=== PATIENT | male | born 1950 | race Caucasian/White ===

== ENCOUNTER 2019-10-15 11:24 | Emergency (ER) | payer MEDICARE, OTHER, SELFPAY | END 2019-10-15 14:55 | disposition home or self-care (01) | PROVIDERS: Emergency Provider Family Medicine; Family Provider Nurse Practitioner Family; Visit Provider Family Medicine | DX: I25.110 Atherosclerotic heart disease of native coronary artery with unstable angina pectoris (principal); I10 Essential (primary) hypertension; Z98.61 Coronary angioplasty status; I25.2 Old myocardial infarction | CPT/HCPCS: 36415; 71045; 80053; 84484 ×2; 85025; 85610; 93005 ×2; 99284 ==

== ENCOUNTER 2019-10-21 22:20 | Observation (INO) | payer MEDICARE, OTHER, SELFPAY ==
[2019-10-21 22:45] VITALS: BP 128/72; PULSE 59; RESP 16; O2SAT 96
--- NOTE | 2019-10-21 22:46 | XRR_ITS ---
PROCEDURE INFORMATION: Exam: XR Chest, 1 View Exam date and time: 10/21/2019 11:26 PM Age: 69 years old Clinical indication: Chest pain; Prior surgery; Surgery date: 6+ months; Surgery type: Valve replacement, stents x 1; Additional info: Cp TECHNIQUE: Imaging protocol: XR of the chest Views: 1 view. COMPARISON: CR Chest 1 [place] [id number] 10/15/2019 12:55 PM FINDINGS: Lungs: No interval lung disease. Pleural space: Still no pneumothorax or apparent pleural fluid. Heart/Mediastinum: Heart size at the upper limits of normal as before. Continued suggestion of a right cardiophrenic fat pad. Bones/joints: Previous median sternotomy again evident. Continued metallic anchors in the left humeral head. No apparent acute fracture. Continued prominent narrowing of the interspace between the proximal left fourth and fifth ribs. XR/XR chest 1V portable [id number] IMPRESSION: No acute cardiopulmonary disease or significant change in the chest. Chronic findings detailed above.
--- NOTE | 2019-10-21 22:46 | ECG_ITS ---
Measurements Intervals [place] Rate: 59 P: 70 [place]: 161 QRS: -35 QRSD: 104 T: 29 QT: 421 QTc: 419 SINUS BRADYCARDIA LOW QRS VOLTAGE IN PRECORDIAL LEADS INCOMPLETE RIGHT BUNDLE BRANCH BLOCK INFERIOR MYOCARDIAL INFARCTION , OF INDETERMINATE AGE Compared to ECG 10/15/2019 14:11:33 Incomplete right bundle-branch block now present Myocardial infarct finding still present Electronically Signed On 10-22-2019 11:15:02 DIGITAL FORENSICS INVESTIGATOR by America Hayes M.D. [id number]
--- NOTE | 2019-10-21 22:48 | ED_ITS ---
Entered by Cristina Aguirre, acting as scribe for HPI - Chest Pain General: Stated Complaint: cp Time Seen by Provider: 10/21/19 22:46 Source: patient Mode of arrival: ambulatory Limitations: no limitations History of Present Illness: HPI narrative: 69 yo m came to the er pov for chest pain. Onset was today. Pt states that he was setting watching tv and then he started having pain down his left arm. Pt states that he took a nati, pt then went and layed down and the chest pains came back. Pt states that he took another nitro when he got into the car and the pain went away. Pts states that they went to go see his cardio doc in [facility] today and pts said that he has a cath scheduled this . Pts states that the pt has been sob 3 times today. MD complaint: chest pain Onset (ago): day(s) (today) Timing of current episode: episodic and now resolved Prior episodes: Yes Onset: during rest Pain radiation: none Quality: sharp Associated symptoms: Reports dyspnea; Deny abdominal pain, fever(s), nausea, palpitations or vomiting Risk Factors: Coronary artery disease risk factors: none Review of Systems Const: Denies: fever Eyes: Denies: change in vision or blurry vision ENMT: Denies: painful swallowing, swelling of lips/tongue, bleeding gums, dental pain, Change in hearing, nose bleeds, post nasal drip or facial/sinus pain Card: Denies: palpitations Resp: Reports: shortness of breath GI: Denies: abdominal pain, nausea or vomiting : Denies: difficulty urinating, painful urination, urinary frequency, urinary urgency or blood in urine Musc: Denies: neck pain, back pain, redness or joint warmth Skin/Breast: Denies: rash, itching or redness Neuro: Denies: headache, dizziness, vertigo, confusion or seizure-like activity Psych: Denies: anxiety, visual hallucinations or auditory hallucinations Physical Exam Const: COMMON NORMALS: alert GENERAL APPEARANCE: well developed ORIENTATION/CONSCIOUSNESS: Yes awake, Yes oriented to person, Yes oriented to place and Yes oriented to time HENMT: COMMON NORMALS: normocephalic, external ears normal, external nose normal and moist oral mucous membranes HEAD & SCALP: normocephalic; no scalp tenderness FACE & SINUS: normal facial exam NOSE: external nose normal and no nasal discharge EXTERNAL EAR: Yes external ears normal MOUTH: tongue normal THROAT: posterior oropharynx normal; no peritonsillar mass Eye: COMMON NORMALS: PERRL, EOMs intact bilaterally and conjunctivae normal EYELID: eyelids normal CONJUNCTIVA: Yes conjunctivae normal PUPIL: Yes PERRL Neck/C-Spine: COMMON NORMALS: full ROM GENERAL: Yes anterior neck swelling and No tracheal deviation CERVICAL SPINE: Yes normal cervical lordosis, No cervical spine tenderness, No step off deformity, No paracervical muscle tenderness and No paracervical muscle spasm Chest: COMMONS NORMALS: inspection of chest normal CHEST: Yes symmetrical chest wall rise and No tenderness Resp: COMMON NORMALS: clear to auscultation bilaterally EFFORT & INSPECTION: No tachypneic, No respiratory distress, No retractions, No uses accessory muscles and No tracheal deviation AUSCULTATION: clear to auscultation bilaterally, no rhonchi, no wheezes and lung sounds not diminished Cardio: COMMON NORMALS: regular rate and regular rhythm RATE: regular rate RHYTHM: regular rhythm HEART SOUNDS: no murmurs PERIPHERAL PULSES: radial pulses present GI: INSPECTION: No abdominal distension AUSCULTATION: No hyperactive bowel sounds and No hypoactive bowel sounds PALPATION: No tender, No guarding and No rigid PERCUSSION: no dullness to percussion and no tympanic to percussion : COMMON NORMALS: Yes no CVA tenderness BLADDER/KIDNEY EXAM: Yes no CVA tenderness Back/Pelvis: COMMON NORMALS: no CVA tenderness PELVIS: Yes no pain with anterior-posterior compression and Yes no pain with lateral compression Neuro: SENSORIUM/ORIENTATION: Yes alert, Yes oriented to person, Yes oriented to place and Yes oriented to time Psych: COMMON NORMALS: mental status grossly normal and speech normal SPEECH: Yes normal speech Skin: COMMON NORMALS: no rashes or lesions noted GENERAL SKIN EXAM: no rashes or lesions noted Course Consultations: Consultation #1: danna Vital Signs: Vital signs: Vital Signs Pulse Rate 69 10/22/19 03:32 Respiratory Rate 17 10/22/19 03:32 Blood Pressure 164/86 10/22/19 03:32 Pulse Oximetry 95 10/22/19 03:32 MDM - Chest Pain MDM Narrative: Medical decision making narrative: 69-year-old male with a history of coronary disease and valvular disease. He has 2 stents in his heart. 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 He been having chest pain in a crescendo manner for the last couple of weeks. He had seen his ticket collector, and was scheduled for a catheterization this coming . His EKGs show sinus rhythm without ST changes. His troponins did not change at 2 hours. He walked in the ER, with return of chest discomfort and some shortness of breath. He will be observed for chest pain. Hospitalist is aware. Lab Data: Labs: Lab Results 10/21/19 10/21/19 10/21/19 Range/Units 22:50 22:58 22:58 WBC 5.3 (4.0-10.0) 10^3/ uL RBC 4.34 (4.1-5.3) 10^6/u L Hgb 13.1 (11.7-16.6) g/dL Hct 38.3 L (42.0-52.0) % MCV 88.2 (80-94) fL MCH 30.2 (28.0-34.0) pg MCHC 34.2 (30.0-36.0) g/dL RDW 12.0 L (12.1-15.1) % Plt Count 205 (130-400) 10^3/c mm MPV 10.8 H (7.4-10.4) fL Neut % (Auto) 48.7 % Lymph % (Auto) 39.9 % Payne % (Auto) 7.2 % Eos % (Auto) 3.6 % Baso % (Auto) 0.6 % Neut # (Auto) 2.6 (1.8-7.7) 10^3/u L Lymph # (Auto) 2.1 (0.8-4.8) 10^3/u L Payne # (Auto) 0.4 (0.2-0.9) 10^3/u L Eos # (Auto) 0.2 (0.0-0.8) 10^3/u L Baso # (Auto) 0.0 (0.0-0.1) 10^3/u L Nucleated RBC % (a uto) 0 % Nucleated RBCs # 0.0 /100WBC Sodium 142 (136-145) mmol/L Potassium 4.1 (3.5-5.1) mmol/L Chloride 107 (98-107) mmol/L Carbon Dioxide 22 (22-29) mmol/L Anion Gap 17.1 (5-19) BUN 13 (8-23) mg/dL Creatinine 0.8 (0.7-1.2) mg/dL GFR Calculation 96.1 (90-130) mL/min Glucose 99 (74-106) mg/dL Calcium 9.7 (8.8-10.2) mg/Dl Total Bilirubin 0.2 (0.15-1.2) mg/dL AST 22 (0-40) U/L ALT 18 (0-41) U/L Alkaline Phosphata se 46 (40-130) IU/L Creatine Kinase 73 (39-308) U/L Troponin T Baselin e (0-15) ng/mL Troponin T 120 Min roberth (0-15) ng/mL Delta Troponin T (0-10) ABS# NT-Pro-B Natriuret Pep 176 H (0-125) pg/mL Total Protein 6.5 L (6.6-8.7) g/dL Albumin 4.4 (3.5-5.2) g/dL Globulin 2.1 (1.3-4.6) g/dL Urine Color Straw (Yellow) Urine Appearance Clear (CLEAR) Urine pH 7 (5-7) Ur Specific Gravit y 1.001 L (1.005-1.030) Urine Protein Neg (Negative) Urine Glucose (UA) Norm (Normal) Urine Ketones Negative (Negative) Urine Occult Blood Neg (Negative) Urine Nitrate Negative (Negative) Urine Bilirubin Neg (NEGATIVE) Urine Urobilinogen Norm (Negative) mg/dL Ur Leukocyte Nicolasa ase Negative (Negative) Urine RBC None (0-2) /hpf Urine WBC None (0-5) /hpf Ur Squamous Epith Cells None (0-5) Urine Bacteria None (NONE) 10/21/19 10/22/19 Range/Units 22:58 00:56 WBC (4.0-10.0) 10^3/ uL RBC (4.1-5.3) 10^6/u L Hgb (11.7-16.6) g/dL Hct (42.0-52.0) % MCV (80-94) fL MCH (28.0-34.0) pg MCHC (30.0-36.0) g/dL RDW (12.1-15.1) % Plt Count (130-400) 10^3/c mm MPV (7.4-10.4) fL Neut % (Auto) % Lymph % (Auto) % Payne % (Auto) % Eos % (Auto) % Baso % (Auto) % Neut # (Auto) (1.8-7.7) 10^3/u L Lymph # (Auto) (0.8-4.8) 10^3/u L Payne # (Auto) (0.2-0.9) 10^3/u L Eos # (Auto) (0.0-0.8) 10^3/u L Baso # (Auto) (0.0-0.1) 10^3/u L Nucleated RBC % (a uto) % Nucleated RBCs # /100WBC Sodium (136-145) mmol/L Potassium (3.5-5.1) mmol/L Chloride (98-107) mmol/L Carbon Dioxide (22-29) mmol/L Anion Gap (5-19) BUN (8-23) mg/dL Creatinine (0.7-1.2) mg/dL GFR Calculation (90-130) mL/min Glucose (74-106) mg/dL Calcium (8.8-10.2) mg/Dl Total Bilirubin (0.15-1.2) mg/dL AST (0-40) U/L ALT (0-41) U/L Alkaline Phosphata se (40-130) IU/L Creatine Kinase (39-308) U/L Troponin T Baselin e 17 H (0-15) ng/mL Troponin T 120 Min roberth 16.57 H (0-15) ng/mL Delta Troponin T -0.43 L (0-10) ABS# NT-Pro-B Natriuret Pep (0-125) pg/mL Total Protein (6.6-8.7) g/dL Albumin (3.5-5.2) g/dL Globulin (1.3-4.6) g/dL Urine Color (Yellow) Urine Appearance (CLEAR) Urine pH (5-7) Ur Specific Gravit y (1.005-1.030) Urine Protein (Negative) Urine Glucose (UA) (Normal) Urine Ketones (Negative) Urine Occult Blood (Negative) Urine Nitrate (Negative) Urine Bilirubin (NEGATIVE) Urine Urobilinogen (Negative) mg/dL Ur Leukocyte Nicolasa ase (Negative) Urine RBC (0-2) /hpf Urine WBC (0-5) /hpf Ur Squamous Epith Cells (0-5) Urine Bacteria (NONE) Discharge Plan Discharge Patient Disposition: Placed in Observation Admit Provider: Braxton Butler Clinical Impression: Chest pain Condition: Stable Referrals: Marci Russo FNP [Family Provider] - Interventions: ED Discharge Assessment Last Done: 10/22/19 03:32 Discharge Date/Time: 10/22/19 03:57 Coding Level of Care Code ED Jail Guard for Chg Fwd The documentation recorded by the Timothy wynne Stephanie Lyn, accurately reflects the service I personally performed and the decisions made by Wisam dunn Jeremy John, DO Oct 21, 2019 22:20
[2019-10-21 23:00] VITALS: BP 154/91; PULSE 71; O2SAT 94
[2019-10-21 23:09] VITALS: BP 154/91; PULSE 65; RESP 16; O2SAT 95
[2019-10-21 23:10] LABS: Basophils % 0.6 %; Eosinophils # 0.2 10^3/uL (0.0-0.8); Eosinophils % 3.6 %; Hematocrit 38.3 % (42.0-52.0); Hemoglobin 13.1 g/dL (11.7-16.6); Lymphocytes # 2.1 10^3/uL (0.8-4.8); Lymphocytes % 39.9 %; Mean Corpuscular HGB Conc 34.2 g/dL (30.0-36.0); Mean Corpuscular Hemoglobin 30.2 pg (28.0-34.0); Mean Corpuscular Volume 88.2 fL (80-94); Mean Platelet Volume 10.8 fL (7.4-10.4); Monocytes # 0.4 10^3/uL (0.2-0.9); Monocytes % 7.2 %; Neutrophils # 2.6 10^3/uL (1.8-7.7); Neutrophils % 48.7 %; Nucleated Red Blood Cells % 0 %; Platelet Count 205 10^3/cmm (130-400); Red Blood Count 4.34 10^6/uL (4.1-5.3); White Blood Count 5.3 10^3/uL (4.0-10.0)
[2019-10-21 23:14] LABS: Bilirubin Urine Neg (NEGATIVE); Blood Urine Neg (Negative); Glucose Urine UA Norm (Normal); Ketones Urine Negative (Negative); Leukocyte Esterase Urine Negative (Negative); Nitrate Urine Negative (Negative); Protein Urine Neg (Negative); Specific Gravity, Urine 1.001 (1.005-1.030); Urine Appearance Clear (CLEAR); Urine Color Straw (Yellow); Urobilinogen Urine Norm (Negative); pH Urine 7 (5-7)
[2019-10-21 23:30] VITALS: BP 126/76; PULSE 61; O2SAT 94
[2019-10-21 23:32] LABS: Troponin(5th) Baseline 17 ng/mL (0-15)
[2019-10-21 23:42] LABS: Alanine Aminotransferase 18 U/L (0-41); Albumin Level 4.4 g/dL (3.5-5.2); Alkaline Phosphatase 46 IU/L (40-130); Anion Gap 17.1 (5-19); Aspartate Amino Transferase 22 U/L (0-40); Blood Urea Nitrogen 13 mg/dL (8-23); Calcium 9.7 mg/Dl (8.8-10.2); Carbon Dioxide 22 mmol/L (22-29); Chloride 107 mmol/L (98-107); Creatine Phosphokinase 73 U/L (39-308); Globulin 2.1 g/dL (1.3-4.6); Glomerular Filtration Rate 96.1 mL/min (90-130); Glucose 99 mg/dL (74-106); NT Pro B Type Natriuretic Pept 176 pg/mL (0-125); Potassium 4.1 mmol/L (3.5-5.1); Sodium 142 mmol/L (136-145); Total Bilirubin 0.2 mg/dL (0.15-1.2); Total Protein 6.5 g/dL (6.6-8.7)
[2019-10-22] VITALS (27 sets, daily range): BP systolic 96–164; BP diastolic 53–90; PULSE 55–76; RESP 7–23; TEMP 36.3–36.9; O2SAT 92–98
--- NOTE | 2019-10-22 00:46 | ECG_ITS ---
Measurements Intervals [place] Rate: 61 P: 75 [place]: 160 QRS: -43 QRSD: 97 T: 34 QT: 401 QTc: 407 SINUS RHYTHM POSSIBLE RIGHT VENTRICULAR CONDUCTION DELAY [RSR (QR) IN V1/V2] POSSIBLE ANTERIOR MYOCARDIAL INFARCTION, OF INDETERMINATE AGE INFERIOR MYOCARDIAL INFARCTION , OF INDETERMINATE AGE Compared to ECG 10/15/2019 14:11:33 Sinus bradycardia no longer present Myocardial infarct finding still present Electronically Signed On 10-22-2019 11:23:57 RESPITE WORKER by America Hayes M.D. [email or web address]
[2019-10-22 01:18] LABS: Troponin 5 2HR 16.57 ng/mL (0-15)
[2019-10-22 01:21] LABS: Troponin 5 2HR Delta -0.43 ABS# (0-10)
--- NOTE | 2019-10-22 04:46 | ECG_ITS ---
Measurements Intervals [place] Rate: 58 P: 74 [place]: 164 QRS: -32 QRSD: 103 T: 28 QT: 419 QTc: 415 SINUS BRADYCARDIA INCOMPLETE RIGHT BUNDLE BRANCH BLOCK INFERIOR MYOCARDIAL INFARCTION, OF INDETERMINATE AGE Compared to ECG 10/15/2019 14:11:33 Incomplete right bundle-branch block now present Myocardial infarct finding still present Electronically Signed On 10-22-2019 11:21:06 POLISHER DIAL by America Hayes M.D. [id number]
--- NOTE | 2019-10-22 05:36 | PM.HP ---
Providers/Chief Complaint Admitting Physician: Braxton Butler MD Chief Complaint: cp History of Present Illness Ian Monroe is a 69 year old male who carries diagnosis of coronary disease stent in LAD, mitral valve repair for mitral valve regurgitation, BPH, hypertension, dyslipidemia, came in after experiencing chest pain. Patient is stating that he goes to his monitoring manager in [place] and he had planned coronary angiogram this but unfortunately he started having chest pain at rest last night while he was sitting in couch it lasted for 1 minute and then he took nitro sublingual and after 5 minutes he went to bed and while he was in bed he started having second episode he took another sublingual nitro and decided to come to ER for further evaluation. He experienced mild facial flushing, hot flashes, shortness of breath, he felt nauseous. In emergency department he had normal hemodynamics, but on ambulation he started having another chest pain and third dose of nitro was given. He was preferring to get angiogram in [place] but because of this active chest pain/unstable angina he decided to get a cardiac evaluation in the morning. By the time I saw her he had normal hemodynamics, he was chest pain-free, sitting without active discomfort, EKG showed normal sinus rhythm with bradycardia without any ischemic changes, troponin delta nonsignificant, normal blood work He is allergic to statins, he is thinking of getting PCSK9 inhibitor prescription, His recent stress test was negative in July 2019 Review of Systems Narrative: Patient was then comfortable in his bed without any active discomfort he is denying fever, chills, shortness of breath He had chest pain few minutes back when he was ambulating not at the moment Abdomen soft nontender nondistended He is denying diarrhea constipation He is denying hot flashes, skin ulcers, bruises He is denying chest pain at the moment No shortness of breath at the moment but experience shortness of breath and chest pain on ambulation No burning on micturition No anxiety or depression No cough, runny nose, runny eyes Medications/Allergies Home Medications Medication Instructions Recorded Confirmed Last Taken Type ascorbic acid (vitamin C) [Vitamin 500 mg PO DAILY 10/22/19 10/22/19 10/21/19 08:00 History C] aspirin 81 mg PO DAILY 10/22/19 10/22/19 10/21/19 08:00 History azelastine 2 spray INTRANASAL BID 10/22/19 10/22/19 10/21/19 08:00 History cholecalciferol (vitamin D3) 1,000 unit PO DAILY 10/22/19 10/22/19 10/21/19 08:00 History [Vitamin D3] dutasteride 0.5 mg PO DAILY 10/22/19 10/22/19 10/21/19 08:00 History ezetimibe [Zetia] 5 mg PO DAILY 10/22/19 10/22/19 10/21/19 08:00 History isosorbide mononitrate 30 mg PO DAILY 10/22/19 10/22/19 10/21/19 08:00 History lisinopril 10 mg PO DAILY 10/22/19 10/22/19 10/21/19 08:00 History metoprolol succinate 50 mg PO DAILY 10/22/19 10/22/19 10/21/19 08:00 History tamsulosin [Flomax] 0.4 mg PO BID 10/22/19 10/22/19 10/21/19 08:00 History zinc 50 mg PO DAILY 10/22/19 10/22/19 10/21/19 08:00 History Allergies Allergy/AdvReac Type Severity Reaction Status Date / Time niacin Allergy Severe ADR/ALGY-Fl Verified 10/22/19 04:12 ushing [id number]-[id number]-Uwg Reductase Allergy Intermediate ADR-Cramping Verified 10/22/19 04:11 Inhibitor of the Muscles PFSH Acute PFSH: Statuses (acute, chronic, etc) shown below reflect problem list status as previously entered and may not be historically accurate Medical History (Updated 10/22/19 @ 05:46 by Braxton Butler MD) Abnormal colonoscopy (Acute) BPH (benign prostatic hyperplasia) (Acute) Colon polyp (Acute) Dyslipidemia (Acute) Erectile dysfunction (Acute) Hypertension (Acute) Left lateral epicondylitis (Acute) Mitral valve regurgitation (Acute) Non-smoker (Acute) Shoulder pain with history of repair of rotator cuff (Acute) Surgical History (Updated 10/22/19 @ 05:45 by Braxton Butler MD) H/O circumcision (Acute) History of unicondylar arthroplasty of right knee (Acute) S/P mitral valve repair (Acute) Family History (Updated 10/22/19 @ 04:19 by Alba Guidry RN) Mother Hypertension CAD (coronary artery disease) Cancer Dementia Father Cancer Social History (Updated 10/22/19 @ 04:16 by Alba Guidry RN) Smoking and tobacco status: never smoked Vitals/I&O/Wt Last Vital Signs Temp 98.1 F 10/22/19 04:50 Pulse 69 10/22/19 03:32 Resp 18 10/22/19 04:50 BP 141/83 10/22/19 04:50 Pulse Ox 95 10/22/19 03:32 Weight last 48 hrs Weight 80.331 kg Physical Exam Narrative: EXAM NARRATIVE: Appears stated age, facial flushing, Looks hydrated without any distress S1-S2 without any murmur, no signs of heart failure no JVD no lower semi-edema Abdomen soft nontender nondistended Neurological nonfocal exam Skin shows no signs of ischemia Also Mentation with appropriate mood and affect no anxiety or depression signs No lower sitting edema Lungs are clear to auscultation without adventitious sounds No joint abnormality A&P Assessment and plan (1) Unstable angina: Status: Acute Code(s): I20.0 - Unstable angina (2) CAD (coronary artery disease): Status: Acute Code(s): I25.10 - Atherosclerotic heart disease of [place] coronary artery without angina pectoris Additional A&P Information Additional A&P Information: Unstable angina Patient has established coronary disease with stent in LAD, strong family history EKG showing no signs of coronary ischemia, currently chest pain-free, normal hemodynamics, delta troponin nonsignificant, He was scheduled for an angiogram on this week Because of unstable angina on mild exertion and at rest he decided to get cardiac evaluation in the morning at [facility] but he prefers to be evaluated by his monitoring manager if he stays stable We will keep him n.p.o. for now in case he will go for an angiogram here For his antianginal effect I would increase the dose of metoprolol and Imdur for now Continue lisinopril He is not on any statins he is statin intolerant, will get PCSK9 inhibitor prescription in the near future BPH: Continue tamsulosin Hypertension: Continue lisinopril Dyslipidemia: He is on Zetia Full code Attestations Medical Necessity Statement*: We will admit him as observation for now he is waiting for cardiac evaluation here, anticipating his discharge in less than 48 hours currently chest pain-free Time Spent in Patient Care: Greater than 35 minutes 45 Coding Level of Care Code Acute Beef Cattle Farm Worker for Aleksandrg Fwd Diagnoses Unstable angina I20.0 CAD (coronary artery disease) I25.10
[2019-10-22 06:05] LABS: Troponin 5 6HR 18.13 ng/L (0-15)
--- NOTE | 2019-10-22 08:09 | PM.PN ---
Subjective Subjective: Interval history: Overnight labs and H&P reviewed. Awaiting cardiology evaluation. Patient denies any current complaints of chest pain dyspnea palpitations. He feels asymptomatic right now. Medications: Reviewed: Yes Vitals/I&O/Wt Last Vital Signs Temp 97.9 F 10/22/19 07:24 Pulse 64 10/22/19 07:24 Resp 16 10/22/19 07:24 BP 139/83 10/22/19 07:24 Pulse Ox 95 10/22/19 07:24 Weight last 48 hrs Weight 80.331 kg Physical Exam Narrative: EXAM NARRATIVE: General: awake alert and oriented CVS S1-S2 is normal no murmurs rubs or gallops RS clear to auscultation bilaterally, no added sounds Abdomen soft nondistended nontender Extremities no swelling edema or cyanosis A&P Assessment and plan (1) Unstable angina: Status: Acute Code(s): I20.0 - Unstable angina (2) CAD (coronary artery disease): Status: Acute Code(s): I25.10 - Atherosclerotic heart disease of [place] coronary artery without angina pectoris Additional A&P Information Additional A&P Information: Unstable angina Patient has established coronary disease with stent in LAD, strong family history EKG showing no signs of coronary ischemia, currently chest pain-free, normal hemodynamics, delta troponin nonsignificant. Awaiting cardiology evaluation for possible angiogram Continue metoprolol and Imdur for now Continue lisinopril He is not on any statins he is statin intolerant, will get PCSK9 inhibitor prescription in the near future Hypertension: Continue lisinopril Dyslipidemia: He is on Zetia Full code Attestations Medical Necessity Statement*: Admitted for the management of unstable angina with a significant past history of CAD awaiting cardiology evaluation Coding Level of Care Code Acute Veneer Joiner for [facility] Fwd Diagnoses Unstable angina I20.0 CAD (coronary artery disease) I25.10
--- NOTE | 2019-10-22 09:20 | XACV_ITS ---
Exam Room: [facility] Ht: 168 cm Wt: 76 kg BSA: 1.90 m2 Gender: Male : 1950 Any Known Allergies: Other Exam Priority: Routine Procedure(s): Procedure Description: Diagnostic procedure Procedure Description: PCI procedure Procedure Description: Left Heart Catheterization Procedure Description: Left ventriculography Procedure Description: Drug Eluting Coronary Stent Procedure Description: Coronary Angiography Diagnostic Cath Status: Urgent Diagnostic Findings Patient with prior history of LAD stent and mitral valve repair with typical angina. Stress testing 3 months ago negative reportedly. Was scheduled for angiography this coming 4 days from now in [place]. Entered the hospital with unstable chest discomfort now occurring at rest. Troponins negative. EKG is unremarkable. Angiography reveals right coronary artery dominance. Left main coronary artery is normal. The circumflex is normal. The mitral valve ring is in the appropriate position. Previously placed LAD stent in the proximal portion is widely patent. Distal to the left main and proximal to the existing stent there is a 99% discrete stenosis of the LAD. The remainder of the LAD is normal. The right coronary artery is the dominant vessel. It is moderately calcified. There is a 60% stenosis in the midportion followed by an eccentric 20 to 30% stenosis. PCI Status: Urgent PCI LVEF Assessed: Yes PCI Indication: NSTE - ACS Interventional Findings The proximal LAD was stented primarily with a 2.75 x 8 mm stent with a good result. Decision for PCI with Surgical Consult: No PCI for Multi-vessel Disease: No Conclusions Previously placed LAD stent patent. New lesion in the very proximal LAD 99%. Primarily stented without incident. Remainder of the vessels show nonobstructive disease. Normal left ventricular function. Recommendations Medical therapy. Interventional RX Recommendation: PCI w/o planned CABG Diagnostic RX Recommendation: PCI w/o planned CABG Anticoagulation: Heparin Ventriculography Ejection Fraction: 55.0 % Pressures Phase:Rest AO : 94 mmHg / 46 mmHg ( 63 mmHg ) @ 4:58:00 AM 94 mmHg / 53 mmHg ( 71 mmHg ) @ 5:08:00 AM 99 mmHg / 47 mmHg ( 71 mmHg ) @ 5:08:00 AM LV : 119 mmHg / -4 mmHg / @ 5:07:00 AM 111 mmHg / -4 mmHg / @ 5:08:00 AM 111 mmHg / -4 mmHg / @ 5:08:00 AM Valves Phase:DefaultPhase AV : 15.0 mmHg @ 11:30:00 AM AV Mean Gradient: 34.0 mmHg @ 11:30:00 AM Clinical Evaluation EBL: 5mL-10mL Procedural Details Cardiovascular Instability: No. Medication's Wasted: Heparin = 1000 units. Procedure Consent Obtained. Pre-Procedure Time Out. Identified patient by full name and date of as verbalized by the patient/guarantor. Does the consent match the physician's order: Yes. Accurate & Complete Informed Consent: Yes. Inpatient/Outpatient History & Physical on Chart: Yes. If H&P is completed, is and addenduem needed: No; If yes, is the addendum complete: N/A. Visualize and Verify Site with Patient/Guarantor: N/A. Relevant Radiology Images available: N/A. Pre-op teaching completed and patient verbalized understanding. The risks, benefits, and alternatives of sedation and/or procedure were discussed by physician. The patient agrees to continue. Procedure started. [facility] Clinical Fraility Score: 3: Managing Well. 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 Chest Pain Symptom Assessment: Typical Angina Symptoms. Correct patient, site and procedure confirmed by cath team. PERRLA. Strong, equal hand global process owner bilaterally. Lungs clear x 5 lobes. IV Site on Arrival: 18 gauge in the left anticubital. Pre Procedural Pulses: bilateral dorsalis pedis was 3+. Pre Procedural Pulses: bilateral posterior tibial was 3+. Pre Procedural Pulses: bilateral radial was 3+. Oxygen started at 2liters/min via nasal canula. bilateral groins was prepped with chloroprep then draped in the usual sterile fashion. right radial was prepped with chloroprep then draped in the usual sterile fashion. Physician notified. Physician arrived. Equipment: 6F - Radial. Cardiac Cath Pack. ACIST Manifold Kit Model BT 2000. Heparinized Saline (2 units/mL), 1000 mL bag. Baseline sample Acquired. HR: 63 BPM. IV Fluids: 0.9% NaCl at KVO. 100 mL infused prior to director of labor relations. Physician scrubbed in. Immediate Pre-Procedure Time Out. Correct Patient: Yes; Correct Procedure: Yes; Correct Site: Yes; Correct Patient Position: Yes; Correct Supplies: Yes; Dried Flammable Prep: Yes; Blood Products Available: N/A;. Lidocaine 1% infiltrated to the right radial. Arterial access obtained. A 6 northern ir[place] TIG catheter in over wire. Multiple views taken of left coronary artery. Catheter redirected to the RCA. Multiple views taken of right coronary artery. Catheter removed over the exchange wire. A 5 [place] Angled Pig catheter in over wire. EDP Sample taken: LV 119/-5,19; HR: 71 BPM; SpO2: 95%. LV gram performed in NICHOLAS @ 10 mL/second for a total of 30 mL. EDP Sample taken: LV 111/-5,18; HR: 69 BPM; SpO2: 96%. Pullback taken: LV 111/-5,18; AO 94/53(71); Mean: 34mmHg, Peak to Peak: 15mmHg, SEP: 14sec/min; HR: 69 BPM; SpO2: 95%. Catheter removed over the exchange wire. Patient's family updated. Inventory is CRD 6FR XB 3 GUIDE. 6 [place] XB 3 guide catheter was inserted over the wire. [place] guidewire was advanced through the guide catheter to lesion in the prox LAD. Inflation Number : 1 Flex Tellez EARLINE 2.75X8 ROLANDO -Lot Number# [id number] (exp date 03/02/2021) was prepped and advanced across the Prox LAD. The stent was deployed at 14 JW for 0:48 seconds. Stent balloon and wire out. Results checked. Guide catheter out. Physician scrubbed out. A TR Band was successful obtaining hemostatsis at the Right Radial artery insertion site. TR band placed. Hemostasis obtained. Post Procedure: Pulses reassessed and unchanged. PERRLA. Strong, equal hand global process owner bilaterally. No VTE prophylaxis required. Medication's Wasted: Lidocaine 1% = 18 mL. Medication's Wasted: Nitro = 49.8 mg. Total IV fluids: 100 mL. PCI Indication: NSTE. Complications: none. Estimated blood loss: 5mL-10mL. Procedure completed. Patient transferred by wheelchair to 1st floor. Vital chart was stopped. Site: Right Radial artery Sheath Size: 6 Fr Hemostasis Method: TR Band Hemostasis Success: Successful Procedure Medications Start: 10:38 AM Stop: 10:38 AM Medication: Versed Amount: 1 mg Route: I.V. Start: 10:38 AM Stop: 10:38 AM Medication: Fentanyl Amount: 50 mcg Route: I.V. Start: 10:40 AM Stop: 10:40 AM Medication: Versed Amount: 1 mg Route: I.V. Start: 10:40 AM Stop: 10:40 AM Medication: Fentanyl Amount: 50 mcg Route: I.V. Start: 10:55 AM Stop: 10:55 AM Medication: Verapamil Amount: 5 mg Route: I.A. Start: 10:55 AM Stop: 10:55 AM Medication: Nitrogylcerin Amount: 200 mcg Route: I.A. Start: 10:57 AM Stop: 10:57 AM Medication: Heparin Amount: 5000 units Route: I.V. Start: 10:59 AM Stop: 10:59 AM Medication: Versed Amount: 1 mg Route: I.V. Start: 10:59 AM Stop: 10:59 AM Medication: Fentanyl Amount: 50 mcg Route: I.V. Start: 11:25 AM Stop: 11:25 AM Medication: Plavix Amount: 600 mg Route: P.O. I, the attending physician, have reviewed and verified all procedure medications. Yes, all medications given per verbal order History/Risk Factors Hypertension: Yes Dyslipidemia: Yes Peripheral Arterial Disease (PAD): No Myocardial Infarction (OR): No Obesity: No Renal Disease: No Tobacco Use: Never Prior Interventions PCI: Yes CABG: No Valve Surgery: No Date of PCI: 03/12/2005 Report Signatures Finalized by:Dr. Lazarus Barry MD on 10/22/2019 12:59:28 PM
--- NOTE | 2019-10-22 09:23 | P.CONIM_ITS ---
Providers/Reason For Consult Consulting Physican/Specialty*: Dr. Hayes, cardiology Reason for Consult*: Chest pain Attending Physician: Braxton Butler MD History of Present Illness History of Present Illness Ian Monroe is a 69 year old male with past medical history of coronary artery disease with LAD stent placed in [place] in 2005 after [place], mitral valve repair in 2010 for severe mitral regurgitation at [facility] (no significant stenosis on coronary angiogram presurgery as per patient), hypertension, dyslipidemia and, chronic back pain and benign prostatic hypertrophy presented to the hospital with complaints of chest discomfort. 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 He was admitted in July 2019 and underwent a stress testing that was negative for ischemia as per patient. I do not have the records. About 2 weeks back patient had chest discomfort described as tightness 6/10 in intensity while walking his dog and there is a ER visit on 15 October with similar complaints. Patient has been having intermittent episodes of chest discomfort on and off over the past 2 weeks. In last 2 days he describes shortness of breath twice as well as chest discomfort 6/10 in intensity retrosternal in location while he was sitting on couch that lasted for about 20 minutes. He was started on Imdur 30 mg 3 days back by his log deck tender and is scheduled for a coronary angiogram next . Initially he wanted to go home home and follow-up up with his log deck tender for angiogram but while in the ER he walked and developed nausea mild shortness of breath chest discomfort and hand pain on ambulation and decision was made to get him admitted for further evaluation. I have been asked to assist in further management. He is currently chest pain-free. Review of Systems Const: Denies: fever, chills, change in appetite, change in weight, fatigue or malaise ENMT: Denies: throat pain, swelling of lips/tongue, oral sores/lesions, bleeding gums, nasal congestion, nose bleeds or post nasal drip Card: Denies: palpitations, irregular heart rhythm, edema, lightheadedness, syncope, shortness of breath when lying down or leg pain with exertion Resp: Denies: productive cough, wheezing or coughing up blood GI: Denies: abdominal pain, vomiting, vomiting blood, heartburn/indigestion, diarrhea, constipation, blood in stool or black tarry stool : Denies: decreased urine ouput or blood in urine Musc: Denies: extremity swelling or muscle weakness Skin/Breast: Denies: rash, redness, new lesion or change in hair Neuro: Denies: numbness in extremities, weakness in extremities, lack of coordination, difficulty walking, dizziness, vertigo or confusion Psych: Denies: anxiety or depression Endo: Denies: tired all the time, cold intolerance or heat intolerance Marco A/Lymph: Denies: petechiae or purpura All/Imm: Denies: throat swelling, tongue swelling or acute wheezing Meds/Allergies Home Medications and Allergies Home Medications Medication Instructions Recorded Confirmed Type ascorbic acid (vitamin C) [Vitamin 500 mg PO DAILY 10/22/19 10/22/19 History C] aspirin 81 mg PO DAILY 10/22/19 10/22/19 History azelastine 2 spray INTRANASAL BID 10/22/19 10/22/19 History cholecalciferol (vitamin D3) 1,000 unit PO DAILY 10/22/19 10/22/19 History [Vitamin D3] dutasteride 0.5 mg PO DAILY 10/22/19 10/22/19 History ezetimibe [Zetia] 5 mg PO DAILY 10/22/19 10/22/19 History isosorbide mononitrate 30 mg PO DAILY 10/22/19 10/22/19 History lisinopril 10 mg PO DAILY 10/22/19 10/22/19 History metoprolol succinate 50 mg PO DAILY 10/22/19 10/22/19 History tamsulosin [Flomax] 0.4 mg PO BID 10/22/19 10/22/19 History zinc 50 mg PO DAILY 10/22/19 10/22/19 History Allergies Allergy/AdvReac Type Severity Reaction Status Date / Time niacin Allergy Severe ADR/ALGY-Fl Verified 10/22/19 04:12 ushing [id number] Reductase Allergy Intermediate ADR-Cramping Verified 10/22/19 04:11 Inhibitor of the Muscles PFSH Acute PFSH: Statuses (acute, chronic, etc) shown below reflect problem list status as previously entered and may not be historically accurate Medical History (Updated 10/22/19 @ 09:42 by America Hayes MD) Abnormal colonoscopy (Acute) BPH (benign prostatic hyperplasia) (Acute) Colon polyp (Acute) Dyslipidemia (Acute) Erectile dysfunction (Acute) Hypertension (Acute) Left lateral epicondylitis (Acute) Mitral valve regurgitation (Acute) Non-smoker (Acute) Shoulder pain with history of repair of rotator cuff (Acute) Surgical History (Updated 10/22/19 @ 09:42 by America Hayes MD) H/O circumcision (Acute) History of coronary artery stent placement (Acute) History of mitral valve repair (Acute) History of unicondylar arthroplasty of right knee (Acute) S/P mitral valve repair (Acute) Family History Mother Hypertension CAD (coronary artery disease) Cancer Dementia Father Cancer Social History Smoking and tobacco status: never smoked Vitals/I&O/Wt Last Vital Signs Temp 97.9 F 10/22/19 07:24 Pulse 64 10/22/19 07:24 Resp 16 10/22/19 07:24 BP 139/83 10/22/19 07:24 Pulse Ox 95 10/22/19 07:24 Weight last 48 hrs Weight 177 lb 1.6 oz Physical Exam Const: COMMON NORMALS: no apparent distress, average body habitus, oriented x3, alert and well nourished GENERAL APPEARANCE: cooperative, comfortable, well kempt and well developed ORIENTATION/CONSCIOUSNESS: Yes oriented to person, Yes oriented to place and Yes oriented to time HENMT: COMMON NORMALS: normocephalic, head/scalp atraumatic, hearing grossly normal bilaterally, external ears normal, external nose normal, moist oral mucous membranes and oropharynx normal HEAD & SCALP: normocephalic and atraumatic FACE & SINUS: face symmetric NOSE: external nose normal EXTERNAL EAR: Yes external ears normal Eye: COMMON NORMALS: PERRL, EOMs intact bilaterally and conjunctivae normal CONJUNCTIVA: Yes conjunctivae normal SCLERA: sclerae normal PUPIL: Yes PERRL Neck/C-Spine: COMMON NORMALS: no lymphadenopathy, supple, no JVD and thyroid normal; negative for no carotid bruits GENERAL: Yes trachea midline THYROID: thyroid normal Chest: COMMONS NORMALS: inspection of chest normal CHEST: Yes symmetrical chest wall rise and No tenderness Resp: COMMON NORMALS: normal respiratory effort, no use of accessory muscles, clear to auscultation bilaterally and percussion normal EFFORT & INSPECTION: Yes able to speak in complete sentences, No tachypneic, No pursed lip breathing, No labored and No audible wheezes AUSCULTATION: clear to auscultation bilaterally, no crackles, no rales, no rhonchi and no wheezes PERCUSSION: percussion normal Cardio: COMMON NORMALS: no JVD, regular rate, regular rhythm, S1 normal heart sound, S2 normal heart sound and peripheral pulses 2+ throughout; negative for no gallops and negative for no clicks PALPATION: normal PMI, no heave, no palpable S3, no palpable S4 and no thrill RATE: regular rate RHYTHM: regular rhythm HEART SOUNDS: S1 normal and S2 normal BRUITS: no carotid bruits PERIPHERAL PULSES: pulses 2+ throughout GI: COMMON NORMALS: normal to inspection, nondistended, normoactive bowel sounds, soft to palpation, non-tender and no hepatosplenomegaly PALPATION: Yes soft and Yes no hepatosplenomegaly RECTAL EXAM: Yes deferred Back/Pelvis: LUMBAR SPINE/LOWER BACK: Yes normal to inspection Neuro: COMMON NORMALS: oriented x3, no focal motor deficits and gait normal SENSORIUM/ORIENTATION: Yes alert, Yes oriented to person, Yes oriented to place and Yes oriented to time CRANIAL NERVES: Yes CN normal except as noted Psych: COMMON NORMALS: thought process normal APPEARANCE: Yes well kempt MOOD & AFFECT: Yes euthymic mood THOUGHT PROCESS: normal thought process THOUGHT CONTENT: Yes normal thought content ATTENTION/CONCENTRATION: Yes attention grossly intact MEMORY/COGNITION: Yes memory grossly intact INSIGHT: insight good JUDGEMENT: judgment good Data Labs: Other Labs: Laboratory Tests 10/21/19 10/21/19 10/22/19 22:58 22:58 00:56 AST 22 ALT 18 Alkaline Phosphata se 46 Creatine Kinase 73 Troponin I 6 Hour Troponin T Baselin e 17 H Troponin T 120 Min roberth 16.57 H NT-Pro-B Natriuret Pep 176 H Total Protein 6.5 L Albumin 4.4 Globulin 2.1 10/22/19 04:51 AST ALT Alkaline Phosphata se Creatine Kinase Troponin I 6 Hour 18.13 H Troponin T Baselin e Troponin T 120 Min roberth NT-Pro-B Natriuret Pep Total Protein Albumin Globulin EKG^: EKG 1: I personally reviewed and interpreted this EKG as follows: My Interpretation: EKG with sinus rhythm with possible right ventricular conduction delay. Poor anterior R wave progression. Possible inferior [place], probably old. No significant change when compared to old EKG. Prior ECG tracings: available for review A&P Assessment and plan (1) Unstable angina: Patient has been having recurrent episodes of chest discomfort over the past 2 weeks which have been increasing in frequency within normal stress testing back in July. No significant change in diet or change on fifth generation troponin T. No significant EKG changes. -I will plan to proceed with coronary angiogram with Dr. Barry later this morning. -This was discussed with the patient and his and they are agreeable with the plan. Risks and benefits of the procedure were discussed with the patient and plan is to proceed with the procedure. -Start on aspirin 325 mg this morning. Loading with P2 Y 12 inhibitor after delineating the coronary anatomy. -Continue metoprolol, Zetia and lisinopril. Dose of Imdur was increased to 60 mg daily. Continue for now. Status: Acute Code(s): I20.0 - Unstable angina (2) CAD (coronary artery disease): History of LAD stenting in 2004 as per patient. Status: Acute Code(s): I25.10 - Atherosclerotic heart disease of [place] coronary artery without angina pectoris (3) Statin intolerance: Status: Acute Code(s): Z78.9 - Other specified health status (4) Dyslipidemia: Patient is on low-dose Zetia. Not on statin given history of statin intolerance. Status: Acute Code(s): E78.5 - Hyperlipidemia, unspecified (5) History of mitral valve repair: Status: Acute Code(s): Z98.890 - Other specified postprocedural states Consult Attestations Medical Necessity Statement: Patient needs hospital stay for management of unstable angina. Time Spent in Patient Care: Greater than 35 minutes (>than 50% of time spent in counselling and/or direct pt care on unit) . 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
[2019-10-22] MEDS: sodium chloride 0.9% 1,000 ML 75 ML IV (09:36)
[2019-10-22] MEDS: aspirin 325 mg Tablet PO (09:52)
[2019-10-22] MEDS: diphenhydrAMINE 50 mg Capsule PO ×2 (09:53)
[2019-10-22] MEDS: ezetimibe 10 mg Tablet 5 MG PO (12:09)
[2019-10-22] MEDS: lisinopril 10 mg Tablet PO (12:10)
[2019-10-22] MEDS: tamsulosin 0.4 mg Capsule PO ×2 (12:12→17:41)
[2019-10-22] MEDS: metoprolol succinate ER (24 HR) 100 mg Tablet PO (12:16)
[2019-10-23 04:00] VITALS: BP 114/75; PULSE 56; RESP 16; TEMP 36.7; O2SAT 93
[2019-10-23 05:07] LABS: Basophils % 0.5 %; Eosinophils # 0.2 10^3/uL (0.0-0.8); Eosinophils % 2.7 %; Hematocrit 38.7 % (42.0-52.0); Hemoglobin 12.9 g/dL (11.7-16.6); Lymphocytes # 1.8 10^3/uL (0.8-4.8); Lymphocytes % 27.9 %; Mean Corpuscular HGB Conc 33.3 g/dL (30.0-36.0); Mean Corpuscular Hemoglobin 29.8 pg (28.0-34.0); Mean Corpuscular Volume 89.4 fL (80-94); Mean Platelet Volume 9.9 fL (7.4-10.4); Monocytes # 0.5 10^3/uL (0.2-0.9); Monocytes % 8.2 %; Neutrophils % 60.5 %; Nucleated Red Blood Cells % 0 %; Platelet Count 198 10^3/cmm (130-400); Red Blood Count 4.33 10^6/uL (4.1-5.3); Red Cell Distribution Width 12.3 % (12.1-15.1); White Blood Count 6.6 10^3/uL (4.0-10.0)
[2019-10-23 05:24] LABS: Anion Gap 13.2 (5-19); Blood Urea Nitrogen 15 mg/dL (8-23); Calcium 9.3 mg/Dl (8.8-10.2); Carbon Dioxide 25 mmol/L (22-29); Chloride 103 mmol/L (98-107); Glomerular Filtration Rate 83.9 mL/min (90-130); Glucose 98 mg/dL (74-106); Potassium 4.2 mmol/L (3.5-5.1); Sodium 137 mmol/L (136-145)
[2019-10-23] MEDS: enoxaparin 40 mg/0.4 mL Syringe SUBCUT (06:21)
[2019-10-23 08:00] VITALS: BP 120/67; PULSE 62; RESP 20; TEMP 36.6; O2SAT 93
--- NOTE | 2019-10-23 09:14 | P.PN_ITS ---
Subjective Subjective: Interval history: Last 24 hours: Patient underwent coronary angiogram with Dr. Barry and was found to have 99% proximal LAD lesion that underwent drug-eluting stent placement by right radial approach. Normal left main and circumflex and dominant RCA with 60% stenosis in midportion followed by eccentric 20 to 30% stenosis. Normal left ventricular systolic function. Subjective: Patient has done well overnight denies having any episodes of chest pain or shortness of breath. Vitals/I&O/Wt Last Vital Signs Temp 98.0 F 10/23/19 04:00 Pulse 56 L 10/23/19 04:00 Resp 16 10/23/19 04:00 BP 114/75 10/23/19 04:00 Pulse Ox 93 10/23/19 04:00 10/22/19 10/23/19 10/23/19 22:59 06:59 14:59 Intake Total 500 / 500 200 / 700 Balance 500 / 500 200 / 700 Weight last 48 hrs Weight 177 lb 1.6 oz Physical Exam Const: COMMON NORMALS: no apparent distress, average body habitus, oriented x3, alert and well nourished GENERAL APPEARANCE: cooperative, comfortable, well kempt and well developed ORIENTATION/CONSCIOUSNESS: Yes oriented to person, Yes oriented to place and Yes oriented to time HENMT: COMMON NORMALS: normocephalic, head/scalp atraumatic, hearing grossly normal bilaterally, external ears normal, external nose normal, moist oral mucous membranes and oropharynx normal HEAD & SCALP: normocephalic and atraumatic FACE & SINUS: face symmetric NOSE: external nose normal EXTERNAL EAR: Yes external ears normal Eye: COMMON NORMALS: PERRL, EOMs intact bilaterally and conjunctivae normal CONJUNCTIVA: Yes conjunctivae normal SCLERA: sclerae normal PUPIL: Yes PERRL Neck/C-Spine: COMMON NORMALS: no lymphadenopathy, supple, no JVD and thyroid normal; negative for no carotid bruits GENERAL: Yes trachea midline THYROID: thyroid normal Chest: COMMONS NORMALS: inspection of chest normal CHEST: Yes symmetrical chest wall rise and No tenderness Resp: COMMON NORMALS: normal respiratory effort, no use of accessory muscles, clear to auscultation bilaterally and percussion normal EFFORT & INSPECTION: Yes able to speak in complete sentences, No tachypneic, No pursed lip breathing, No labored and No audible wheezes AUSCULTATION: clear to auscultation bilaterally, no crackles, no rales, no rhonchi and no wheezes PERCUSSION: percussion normal Cardio: COMMON NORMALS: no JVD, regular rate, regular rhythm, S1 normal heart sound, S2 normal heart sound and peripheral pulses 2+ throughout; negative for no gallops and negative for no clicks PALPATION: normal PMI, no heave, no palpable S3, no palpable S4 and no thrill RATE: regular rate RHYTHM: regular rhythm HEART SOUNDS: S1 normal and S2 normal BRUITS: no carotid bruits PERIPHERAL PULSES: pulses 2+ throughout Back/Pelvis: LUMBAR SPINE/LOWER BACK: Yes normal to inspection Extremity: RIGHT UPPER EXTREMITY: Yes wrist (2+ radial with no significant bruising or hematoma.) Neuro: COMMON NORMALS: oriented x3, no focal motor deficits and gait normal SENSORIUM/ORIENTATION: Yes alert, Yes oriented to person, Yes oriented to place and Yes oriented to time CRANIAL NERVES: Yes CN normal except as noted Psych: COMMON NORMALS: thought process normal APPEARANCE: Yes well kempt MOOD & AFFECT: Yes euthymic mood THOUGHT PROCESS: normal thought process THOUGHT CONTENT: Yes normal thought content ATTENTION/CONCENTRATION: Yes attention grossly intact MEMORY/COGNITION: Yes memory grossly intact INSIGHT: insight good JUDGEMENT: judgment good A&P Assessment and plan (1) Unstable angina: Patient has been having recurrent episodes of chest discomfort over the past 2 weeks which have been increasing in frequency within normal stress testing back in July. No significant change in diet or change on fifth generation troponin T. No significant EKG changes. -I will plan to proceed with coronary angiogram with Dr. Barry later this morning. -This was discussed with the patient and his and they are agreeable with the plan. Risks and benefits of the procedure were discussed with the patient and plan is to proceed with the procedure. -Start on aspirin 325 mg this morning. Loading with P2 Y 12 inhibitor after delineating the coronary anatomy. -Continue metoprolol, Zetia and lisinopril. Dose of Imdur was increased to 60 mg daily. Continue for now. 23 October Patient underwent drug-eluting stent placement to proximal LAD yesterday. He was loaded with Plavix. -Continue aspirin 81 mg and Plavix 75 mg. -Continue metoprolol, imdur and lisinopril. -Nitroglycerin sublingual as needed on discharge. -Patient seems stable to be discharged home from cardiac standpoint. -Follow-up with Lesly Reeves our nurse practitioner in 1 week with JUHI and for site check. Follow-up with me in [facility] in 6 to 8 weeks. -Instructions on cardiac diet and cardiac rehab. Findings of the coronary angiogram were discussed with the patient in detail. -Patient is intolerant to statin and has tried lovastatin, atorvastatin and pravastatin in the past with significant myalgia and arthralgia. -Plan to start on PCSK9 inhibitor as an outpatient. This was discussed with the patient and he is agreeable with the plan. Status: Acute Code(s): I20.0 - Unstable angina (2) CAD (coronary artery disease): History of mid LAD stenting in 2004 as per patient. Patent stent on coronary angiogram yesterday. Status: Acute Code(s): I25.10 - Atherosclerotic heart disease of [place] coronary artery without angina pectoris (3) Statin intolerance: Status: Acute Code(s): Z78.9 - Other specified health status (4) Dyslipidemia: Patient is on low-dose Zetia. Not on statin given history of statin intolerance. Status: Acute Code(s): E78.5 - Hyperlipidemia, unspecified (5) History of mitral valve repair: Status: Acute Code(s): Z98.890 - Other specified postprocedural states Attestations Medical Necessity Statement*: Patient seems stable to be discharged home from cardiac standpoint. Coding Level of Care Code Acute Hr Shared Services Consultant for Taiwo Fwd Exam Problem Focused Diagnoses Unstable angina I20.0 CAD (coronary artery disease) I25.10 Statin intolerance Z78.9 Dyslipidemia E78.5 History of mitral valve repair Z98.890
[2019-10-23] MEDS: lisinopril 10 mg Tablet PO (10:39)
[2019-10-23] MEDS: clopidogrel 75 mg Tablet PO (10:39)
[2019-10-23] MEDS: ezetimibe 10 mg Tablet 5 MG PO (10:40)
[2019-10-23] MEDS: tamsulosin 0.4 mg Capsule PO (10:40)
[2019-10-23] MEDS: aspirin 81 mg EC Tablet PO (10:41)
[2019-10-23] MEDS: metoprolol succinate ER (24 HR) 100 mg Tablet PO (11:14)
[2019-10-23 12:00] VITALS: BP 153/80; PULSE 63; RESP 20; TEMP 36.9; O2SAT 97
[2019-10-23 14:31] VITALS: BP 137/80; PULSE 94; RESP 20; TEMP 36.9; O2SAT 97
[2019-10-23 15:13] LABS: Chol HDL Ratio 5.26 mg/dL (1.0-5.00); Cholesterol 184 mg/dL (0-200); HDL Cholesterol 35 mg/dL (60-100); LDL Cholesterol Calculated 106 mg/dL (50-129); LDL HDL Ratio 3.03 RATIO (0.00-3.22); Triglycerides 217 mg/dL (0-150)
[2019-10-23 19:15] LABS: Estmated Average Glucose 100; Hemoglobin A1C 5.1 % (4.0-6.0)
--- NOTE | 2019-11-06 17:43 | PM.DCS ---
Discharge Providers Date of Admission: 10/22/19 03:16 Attending Provider at Admission: Braxton Butler MD Attending Provider at Discharge: Stephanie Barbour MD Diagnoses at Discharge Discharge Diagnosis (1) Unstable angina: Status: Acute (2) CAD (coronary artery disease): Status: Acute Qualifiers: Coronary Disease-Associated Artery/Lesion type: [place] artery [place] vs. transplanted heart: [place] heart Associated angina: without angina Qualified Code(s): I25.10 - Atherosclerotic heart disease of [place] coronary artery without angina pectoris (3) Statin intolerance: Status: Acute (4) Dyslipidemia: Status: Acute (5) History of mitral valve repair: Status: Acute Reason for Visit Reason for Visit: Reason For Visit: cp Hospital Course Discharge Summary: Taken from H&P Ian Monroe is a 69 year old male who carries diagnosis of coronary disease stent in LAD, mitral valve repair for mitral valve regurgitation, BPH, hypertension, dyslipidemia, came in after experiencing chest pain. Patient is stating that he goes to his hydraulics engineer in [place] and he had planned coronary angiogram this but unfortunately he started having chest pain at rest last night while he was sitting in couch it lasted for 1 minute and then he took nitro sublingual and after 5 minutes he went to bed and while he was in bed he started having second episode he took another sublingual nitro and decided to come to ER for further evaluation. He experienced mild facial flushing, hot flashes, shortness of breath, he felt nauseous. In emergency department he had normal hemodynamics, but on ambulation he started having another chest pain and third dose of nitro was given. He was preferring to get angiogram in [place] but because of this active chest pain/unstable angina he decided to get a cardiac evaluation in the morning. Patient underwent coronary angiogram with Dr. Barry and was found to have 99% proximal LAD lesion that underwent drug-eluting stent placement by right radial approach. Normal left main and circumflex and dominant RCA with 60% stenosis in midportion followed by eccentric 20 to 30% stenosis. Normal left ventricular systolic function. He was discharged on ASA,plavix,metoprolol,lisinopril and imdur. Patient is intolerant to statin and has tried lovastatin, atorvastatin and pravastatin in the past with significant myalgia and arthralgia. Plan to start on PCSK9 inhibitor as an outpatient with cardiology. 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 Routin e Exams 10/22/19 09:20 Completed XR chest 1V shoshana ble [id number] Stat Exams 10/21/19 22:46 Completed Vitals: Last Vital Signs Temp 98.4 F 10/23/19 14:31 Pulse 94 10/23/19 14:31 Resp 20 H 10/23/19 14:31 BP 137/80 10/23/19 14:31 Pulse Ox 97 10/23/19 14:31 Discharge Plan Discharge Patient Disposition: Home, Self-Care Condition: Stable Prescriptions: New clopidogrel 75 mg Tablet 75 mg PO DAILY Qty: 30 RF: 0 nitroglycerin 0.4 mg tablet, sublingual 0.4 mg SUBLINGUAL Q5M PRN (Reason: chest pain) Qty: 30 RF: 0 Continued metoprolol succinate 50 mg Tablet Extended Release 24 Hr 50 mg PO DAILY RF: 0 isosorbide mononitrate 30 mg Tablet Extended Release 24 Hr 30 mg PO DAILY RF: 0 Vitamin C 500 mg Tablet 500 mg PO DAILY RF: 0 Flomax 0.4 mg Capsule 0.4 mg PO BID RF: 0 lisinopril 10 mg Tablet 10 mg PO DAILY RF: 0 zinc 50 mg Tablet 50 mg PO DAILY RF: 0 azelastine 137 mcg (0.1 %) Aerosol,[place] 2 spray INTRANASAL BID RF: 0 Vitamin D3 1,000 unit Capsule 1,000 unit PO DAILY RF: 0 Zetia 10 mg Tablet 5 mg PO DAILY RF: 0 dutasteride 0.5 mg Capsule 0.5 mg PO DAILY RF: 0 No Action aspirin 325 mg tablet 325 mg PO DAILY RF: 0 Discharge Orders: Discharge Order (Routine); Ordered 10/23/19 Ordered By: Stephanie Barbour Referrals: Marci Russo FNP [Family Provider] - 7-10 days (You have a hospital followup with PIEDAD Fenton at [facility] on October 31 at 10:00am. Any appointment changes, please call them at [phone]) Lesly Reeves FNP [Nurse Practitioner] - 1 week (You have a surgery site check with PIEDAD Anguiano at [facility] on WednesdayOctober 30 at 10:00am. Any appointment changes, please call them at [phone]) America Hayes MD [Physician] - 2 months (You have a cardiology followup with Dr. Hayes at [facility] on December 24 at 2:00pm. Any appointment changes, please call them at [phone]) Patient Instructions: Nitroglycerin (By mouth), Clopidogrel (By mouth), Coronary Artery Disease (DC), Chest Pain (DC), Chest Pain Stoplight, Post Angiogram Home Care Instructions Discharge Date/Time: 10/23/19 14:34 Discharge Attestations Time Spent in Discharge Care*: greater than 30 min Quality Metrics Clinical Quality Measures During this hospital stay, did patient experience: AMI Clinical Trial Participant: No Contraindication to aspirin (AMI): Aspirin given Contraindication to statin: Adverse reaction to drug and Drug intolerance Coding Level of Care Code Acute Possum Trapper for Chg Fwd Diagnoses Unstable angina I20.0 CAD (coronary artery disease) I25.10 Coronary Disease-Associated Artery/Lesion type: [place] artery [place] vs. transplanted heart: [place] heart Associated angina: without angina Statin intolerance Z78.9 Dyslipidemia E78.5 History of mitral valve repair Z98.890
== END 2019-10-23 14:34 | disposition home or self-care (01) ==
LOC: ER 10-22 03:12 → CSU 10-22 03:24
PROVIDERS: Internal Medicine Cardiovascular Disease; Admitting Provider Internal Medicine; Emergency Provider Emergency Medicine; Family Provider Nurse Practitioner Family; Visit Provider Student in an Organized Health Care Education/Training Program
DX: I25.110 Atherosclerotic heart disease of native coronary artery with unstable angina pectoris (principal); N40.0 Benign prostatic hyperplasia without lower urinary tract symptoms; I10 Essential (primary) hypertension; E78.5 Hyperlipidemia, unspecified; Z95.5 Presence of coronary angioplasty implant and graft; Z79.82 Long term (current) use of aspirin; Z82.49 Family history of ischemic heart disease and other diseases of the circulatory system; I25.2 Old myocardial infarction; Z83.3 Family history of diabetes mellitus
CPT/HCPCS: 12345; 36415; 71045; 80048; 80053; 80061; 81001; 82550; 83036; 83880; 84484; 85025; 93005; 93452; 96372; 96374; 96375; 99282; 99285; C1769; C1874; C1887; C1894; C9600; G0378; J1644; J1650; J2001; J2250; J3010; J3490; J7030; Q0163; Q9967

== ENCOUNTER → 2019-10-30 10:57 | Outpatient (BNVA) | payer MEDICARE, OTHER, SELFPAY | PROVIDERS: Family Provider Nurse Practitioner Family; Visit Provider Nurse Practitioner Family | DX: I25.10 Atherosclerotic heart disease of native coronary artery without angina pectoris (principal) | CPT/HCPCS: 80048 ==

== ENCOUNTER 2019-11-07 13:49 | Outpatient (RCR) | payer MEDICARE, OTHER, SELFPAY | END 2019-11-17 23:59 | disposition home or self-care (01) | LOC: CR 13:49 | PROVIDERS: Family Provider Nurse Practitioner Family; PCP Nurse Practitioner Family; Referring Provider Internal Medicine Cardiovascular Disease; Visit Provider Internal Medicine Cardiovascular Disease | DX: I25.10 Atherosclerotic heart disease of native coronary artery without angina pectoris (principal); I45.10 Unspecified right bundle-branch block; I25.2 Old myocardial infarction; Z95.5 Presence of coronary angioplasty implant and graft | CPT/HCPCS: 93798 ==

== ENCOUNTER 2019-11-20 10:12 | Outpatient (RCR) | payer MEDICARE, OTHER, SELFPAY | END 2019-12-16 23:59 | disposition home or self-care (01) | LOC: CR 10:12 | PROVIDERS: Family Provider Nurse Practitioner Family; PCP Nurse Practitioner Family; Referring Provider Internal Medicine Cardiovascular Disease; Visit Provider Internal Medicine Cardiovascular Disease | DX: I25.10 Atherosclerotic heart disease of native coronary artery without angina pectoris (principal); Z95.5 Presence of coronary angioplasty implant and graft | CPT/HCPCS: 93798 ==

== ENCOUNTER 2019-12-18 10:51 | Outpatient (RCR) | payer MEDICARE, OTHER, SELFPAY | END 2020-01-16 23:59 | disposition home or self-care (01) | LOC: CR 10:51 | PROVIDERS: Family Provider Nurse Practitioner Family; PCP Nurse Practitioner Family; Referring Provider Internal Medicine Cardiovascular Disease; Visit Provider Internal Medicine Cardiovascular Disease | DX: I25.10 Atherosclerotic heart disease of native coronary artery without angina pectoris (principal); Z95.5 Presence of coronary angioplasty implant and graft | CPT/HCPCS: 93798 ==

== ENCOUNTER → 2020-03-25 09:59 | Outpatient (BNVA) | payer MEDICARE, OTHER, SELFPAY | PROVIDERS: Family Provider Nurse Practitioner Family; PCP Nurse Practitioner Family; Visit Provider Nurse Practitioner Family | DX: E78.5 Hyperlipidemia, unspecified (principal); I10 Essential (primary) hypertension | CPT/HCPCS: 80053; 80061 ==

== ENCOUNTER → 2020-06-12 08:09 | Outpatient (BNVA) | payer MEDICARE, OTHER, SELFPAY | PROVIDERS: Family Provider Nurse Practitioner Family; PCP Nurse Practitioner Family; Visit Provider Urology | DX: N40.1 Benign prostatic hyperplasia with lower urinary tract symptoms (principal); N52.1 Erectile dysfunction due to diseases classified elsewhere; Z80.42 Family history of malignant neoplasm of prostate; R97.20 Elevated prostate specific antigen [PSA] | CPT/HCPCS: 81001; 84153 ==

== ENCOUNTER → 2020-11-20 08:40 | Outpatient (BNVA) | payer MEDICARE, SELFPAY | PROVIDERS: Family Provider Nurse Practitioner Family; PCP Nurse Practitioner Family; Visit Provider Internal Medicine Cardiovascular Disease | DX: E78.5 Hyperlipidemia, unspecified (principal); I25.10 Atherosclerotic heart disease of native coronary artery without angina pectoris | CPT/HCPCS: 80061; 80076; 83721 ==

== ENCOUNTER → 2021-06-12 08:13 | Outpatient (BNVA) | payer MEDICARE, SELFPAY | PROVIDERS: Family Provider Nurse Practitioner Family; PCP Nurse Practitioner Family; Visit Provider Urology | DX: N40.1 Benign prostatic hyperplasia with lower urinary tract symptoms (principal); R97.20 Elevated prostate specific antigen [PSA]; N52.1 Erectile dysfunction due to diseases classified elsewhere; Z80.42 Family history of malignant neoplasm of prostate | CPT/HCPCS: 81003; 84153 ==

== ENCOUNTER → 2021-07-08 09:42 | Outpatient (BNVA) | payer MEDICARE, SELFPAY | PROVIDERS: Family Provider Nurse Practitioner Family; PCP Nurse Practitioner Family; Visit Provider Internal Medicine Cardiovascular Disease | DX: E78.5 Hyperlipidemia, unspecified (principal); I10 Essential (primary) hypertension; I25.10 Atherosclerotic heart disease of native coronary artery without angina pectoris; R07.9 Chest pain, unspecified; Z98.890 Other specified postprocedural states | CPT/HCPCS: 80061; 80076; 83721 ==

== ENCOUNTER 2022-06-11 06:33 | Outpatient (CLI) | payer MEDICARE, SELFPAY | END 2022-06-11 06:34 | disposition home or self-care (01) | LOC: LAB 06:36 | PROVIDERS: Family Provider Nurse Practitioner Family; PCP Nurse Practitioner Family; Visit Provider Urology | DX: N40.1 Benign prostatic hyperplasia with lower urinary tract symptoms (principal); R97.20 Elevated prostate specific antigen [PSA]; N52.1 Erectile dysfunction due to diseases classified elsewhere | CPT/HCPCS: 36415; 51741; 51798; 81003; 84153; 99213 ==

== ENCOUNTER 2022-06-26 14:24 | Emergency (ER) | payer MEDICARE, SELFPAY ==
[2022-06-26 14:30] VITALS: BP 165/82; PULSE 63; RESP 16; TEMP 36.7; O2SAT 99; BMI 27.7
[2022-06-26 14:39] VITALS: BP 148/79; PULSE 71; RESP 18; O2SAT 100
--- NOTE | 2022-06-26 14:39 | ECG_ITS ---
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 Measurements Intervals [place] Rate: 62 P: 81 VT: 162 QRS: -29 QRSD: 102 T: -10 QT: 430 QTc: 437 Interpretive Statements SINUS RHYTHM Compared to ECG 10/22/2019 04:25:15 Sinus bradycardia no longer present Incomplete right bundle-branch block no longer present Myocardial infarct finding no longer present Electronically Signed On 06-28-2022 13:25:03 CDT by Fer Spain M.D. [id number]
--- NOTE | 2022-06-26 14:40 | XR_ITS ---
WS: [id number] Portable AP upright chest, 06/26/2022 Clinical Data: SOB Comparison: Portable chest, 10/21/2019. Findings: No nodules, masses or effusions are seen. The heart is normal. The pulmonary vascularity is not increased. No pneumonia or pneumothorax is seen. Midline sternotomy sutures are present. The aor tic arch and descending thoracic aorta show mild tortuosity. There is narrowing of the left fourth an d fifth ribs unchanged. There is an orthopedic anchor in the left humeral head. XR/XR chest 1V portable [id number] Impression: Atherosclerosis.
--- NOTE | 2022-06-26 15:06 | ED_ITS ---
HPI - SOB/Dyspnea General: Chief Complaint: Shortness of Breath/Dyspnea Stated Complaint: SOB Time Seen by Provider: 06/26/22 15:06 History of Present Illness: HPI Narrative: Mr. Monroe is a 72-year-old gentleman with history of CAD, hypertension, hyperlipidemia, recent meniscus repair left knee presenting to the emergency department for intermittent shortness of breath. He describes symptom onset this morning during rest to where he will have about 15-minute episodes where he feels like he cannot get a good breath. Intermittent nature. No known specific provoking factors. When present intensity is moderate. No history of known lung disease or smoking. No associated chest pain or other typical cardiac features. No other specific changes in health, exacerbating, or alleviating factors identified. Onset (ago): hour(s) Context: other Timing: intermittent Severity: moderate Relieving factors: nothing Associated symptoms: Reports no associated symptoms Review of Systems General: Reports: 10 or more systems reviewed and unremarkable except in HPI and below PFSH ED PFSH: Medical History (Updated 07/08/22 @ 22:12 by PIEDAD Fenton) Abnormal colonoscopy Arthritis BPH (benign prostatic hyperplasia) BPH loc w urin obs/LUTS Long-term durable benefit from DUTASTERIDE. Carpal tunnel syndrome, bilateral Colon polyp Dyslipidemia Elevated PSA Transient elevation of 5 with >50% reduction in PSA after initiation of dutasteride for BPH. Persistently in the range of 1.0 since. Erectile dysfunction Erectile dysfunction due to diseases classified elsewhere Multifactorial erectile dysfunction with good response to SILDENAFIL 50 mg on empty stomach. No contraindications. Denies nitroglycerin usage. Family history of prostate cancer Father with history COMMUNITY SUPPORT ASSOCIATE Hypertension Knee torn cartilage, right Left lateral epicondylitis Mitral valve regurgitation Non-smoker Shoulder pain with history of repair of rotator cuff Surgical History H/O circumcision History of coronary artery stent placement History of hernia repair History of mitral valve repair History of unicondylar arthroplasty of right knee S/P left rotator cuff repair S/P mitral valve repair Stented coronary artery Family History Mother , at age 95 Hypertension CAD (coronary artery disease) Cancer Dementia Father , at age 74 Cancer Social History (Reviewed 07/08/22 @ 14:39 by YUE Fenton Smoking and tobacco status: never smoked Alcohol intake: current Alcohol intake frequency: 0-2 Drinks per Day Desire information about alcohol rehabilitation?: No Counseling given: No Marital status: Current occupational status: retired History of recent travel: No Physical Exam Const: COMMON NORMALS: alert GENERAL APPEARANCE: cooperative and well developed HENMT: COMMON NORMALS: normocephalic and atraumatic HEAD & SCALP: normocephalic and atraumatic Eye: COMMON NORMALS: conjunctivae normal CONJUNCTIVA: Yes conjunctivae normal SCLERA: sclerae normal Neck/C-Spine: COMMON NORMALS: supple GENERAL: Yes trachea midline Resp: COMMON NORMALS: normal respiratory effort and clear to auscultation bilaterally EFFORT & INSPECTION: Yes able to speak in complete sentences AUSCULTATION: clear to auscultation bilaterally Cardio: COMMON NORMALS: regular rate and regular rhythm RATE: regular rate RHYTHM: regular rhythm GI: COMMON NORMALS: Soft to palpation PALPATION: Yes Soft to palpation and No Tenderness to palpation present (GI) Extremity: GENERAL: Yes normal exam except as noted and No edema Neuro: COMMON NORMALS: moves all extremities SENSORIUM/ORIENTATION: Yes alert and No Orientation impaired Psych: COMMON NORMALS: mental status grossly normal and Normal thought process present THOUGHT PROCESS: Normal thought process present Course ED course: - Patient was seen and evaluated by me at bedside - Patient placed on cardiac monitors, IV access obtained - Initial evaluation notable for exam as above - Labs and xrays personally interpreted by me. EKG shows sinus rhythm with nonspecific ST segment abnormalities. No STEMI. - Labs notable for no leukocytosis, normal hemoglobin. Metabolic panel without acute derangement. D-dimer is negative. COVID-negative. - Imaging notable for no lobar consolidation or pneumothorax - Upon serial reexamination after treatment the patient was improved - Based on patient history, evaluation, and testing as interpreted the most likely cause of the patient's condition is somewhat unclear though likely relate d to episodic atelectasis secondary to to opioid use in the context of recent procedure - The results of ED evaluation were discussed with the patient including prescriptions and/or symptomatic cares (if applicable) including appropriate and responsible use, incentive spirometer use, followup plan, and return precautions. The patient verbalized understanding and felt safe for discharge. - Patient discharged in satisfactory condition. Note: Click bubbles or prepopulated johnson in note writing are used for assistance with data collection and billing and are inherently more limited than narrative and other text portions of this note. Please use narrative for additional clinical history and defer to narrative/free test for any case of contradictory information. If information appears in only free text or click bubble it should be considered present or absent as reported. Please contact note residential mortgage underwriter for clarifications of clinical information or contradictory information. MDM is a brief summary, contradictory or erroneous seeming information should be clarified and full note should be reviewed. Vital Signs: Vital signs: Vital Signs Temperature 98.0 F 06/26/22 14:30 Pulse Rate 59 L 06/26/22 17:10 Respiratory Rate 18 06/26/22 17:10 Blood Pressure 143/91 06/26/22 17:10 Pulse Oximetry 97 06/26/22 17:10 Oxygen Delivery Me thod 06/26/22 16:22 MDM - SOB/Dyspnea Medical Decision Making 72-year-old gentleman with recent surgical procedure presenting with episodic breathlessness. No clear pathology identified on ED evaluation. May be se condary to shallow respirations due to opioids. Plan to discharge with incentive spirometer and strict return cautions. Medical Records I reviewed the patient's medical records. Lab Data I reviewed the patient's lab results. : 06/26/22 15:25 06/26/22 15:25 Labs/Radiology: Radiology Impressions Chest X-Ray 06/26/22 14:40 Impression: Atherosclerosis. Laboratory Results WBC 6.7 10^3/uL (4.0-10.0) 06/26/22 15:25 RBC 4.12 10^6/uL (4.1-5.3) 06/26/22 15:25 Hgb 12.6 g/dL (11.7-16.6) 06/26/22 15:25 Hct 39.2 % (42.0-52.0) L 06/26/22 15:25 MCV 95.1 fl (80-94) H 06/26/22 15:25 MCH 30.6 pg (28.0-34.0) 06/26/22 15:25 MCHC 32.1 g/dL (30.0-36.0) 06/26/22 15:25 RDW 12.9 % (12.1-15.1) 06/26/22 15:25 Plt Count 188 10^3/cmm (130-400) 06/26/22 15:25 MPV 10.1 fL (7.4-10.4) 06/26/22 15:25 Neut % (Auto) 60.6 % 06/26/22 15:25 Lymph % (Auto) 27.1 % 06/26/22 15:25 [place] % (Auto) 7.7 % 06/26/22 15:25 Eos % (Auto) 3.8 % 06/26/22 15:25 Baso % (Auto) 0.5 % 06/26/22 15:25 Neut # (Auto) 4.04 10^3/uL (1.8-7.7) 06/26/22 15:25 Lymph # (Auto) 1.8 10^3/uL (0.8-4.8) 06/26/22 15:25 [place] # (Auto) 0.5 10^3/uL (0.2-0.9) 06/26/22 15:25 Eos # (Auto) 0.3 10^3/uL (0.0-0.8) 06/26/22 15:25 Baso # (Auto) 0.0 10^3/uL (0.0-0.1) 06/26/22 15:25 Nucleated RBC % (auto) 0 % 06/26/22 15:25 Nucleated RBCs # 0.0 /100WBC 06/26/22 15:25 D-Dimer 0.49 ug/mIFEU (0-0.59) 06/26/22 15:25 Sodium 138 mmol/L (136-145) 06/26/22 15:25 Potassium 4.1 mmol/L (3.5-5.1) 06/26/22 15:25 Chloride 104 mmol/L (98-107) 06/26/22 15:25 Carbon Dioxide 29 mmol/L (22-29) 06/26/22 15:25 Anion Gap 9.1 (5-19) 06/26/22 15:25 BUN 20 mg/dL (8-23) 06/26/22 15:25 Creatinine 0.6 mg/dL (0.7-1.2) L 06/26/22 15:25 GFR Calculation Not Reportable 06/26/22 15:25 Glucose 99 mg/dL (65-115) 06/26/22 15:25 Calculated Osmolality 289 mOsm/kg (285-295) 06/26/22 15:25 Calcium 8.7 mg/dL (8.5-10.5) 06/26/22 15:25 Total Bilirubin 0.5 mg/dL (0.15-1.2) 06/26/22 15:25 AST 22 U/L (0-40) 06/26/22 15:25 ALT 23 U/L (0-41) 06/26/22 15:25 Alkaline Phosphatase 41 U/L (40-130) 06/26/22 15:25 Troponin T Baseline 12 ng/L (0-15) 06/26/22 15:25 NT-Pro-B Natriuret Pep 896 pg/mL (0-125) H 06/26/22 15:25 Total Protein 6.0 g/dL (6.6-8.7) L 06/26/22 15:25 Albumin 3.6 g/dL (3.5-5.2) 06/26/22 15:25 Globulin 2.4 g/dL (1.3-4.6) 06/26/22 15:25 SARS-CoV-2 Ag (Rapid) Negative (Negative) 06/26/22 15:37 Discharge Plan Discharge Patient Disposition: Home Clinical Impression: Shortness of breath Condition: Stable Prescriptions: No Action aspirin [Adult Aspirin Regimen] 81 mg tablet,delayed release (DR/EC) 81 mg PO DAILY nitroglycerin 0.4 mg tablet, sublingual 0.4 mg SUBLINGUAL Q5M PRN (Reason: chest pain) Qty: 50 6RF Rx Instructions: until response; do not exceed 3 doses per episode lisinopril 10 mg tablet 15 mg PO DAILY Qty: 135 3RF Rx Instructions: previously sent on 02/21/2021 Zetia 10 mg tablet 10 mg PO DAILY Qty: 90 3RF tamsulosin 0.4 mg capsule See Rx Instructions .ROUTE .COMPLEX Qty: 180 3RF Dose Instruction: TAKE 1 CAPSULE BY MOUTH TWICE DAILY Rx Instructions: TAKE 1 CAPSULE BY MOUTH TWICE DAILY dutasteride 0.5 mg capsule See Rx Instructions .ROUTE .COMPLEX Qty: 90 3RF Dose Instruction: TAKE ONE CAPSULE BY MOUTH DAILY Rx Instructions: TAKE ONE CAPSULE BY MOUTH DAILY clopidogrel 75 mg tablet 75 mg PO DAILY Qty: 90 3RF metoprolol succinate 50 mg tablet extended release 24 hr 50 mg PO DAILY Qty: 90 3RF isosorbide mononitrate 30 mg tablet extended release 24 hr 30 mg PO DAILY Qty: 90 3RF Repatha SureClick 140 mg/mL pen injector 140 mg SUBCUT .Q2W Qty: 2 12RF azelastine 137 mcg (0.1 %) Aerosol,[place] 2 spray INTRANASAL BID Vitamin D3 25 mcg (1,000 unit) capsule 4,000 unit PO DAILY Discharge Orders: Discharge ED (Routine); Ordered 06/26/22 Ordered By: Galo Cadena Referrals: Marci Russo FNP [Primary Care Provider] - Discharge Diet: Usual diet Discharge Activity: Limit activity as instructed Patient Instructions: How to Use an Incentive Spirometer (ED), Shortness of Breath (ED) Activity Restrictions/Additional Instructions: Thank you for visiting the emergency department. You were seen and evaluated for shortness of breath. The exact cause of your symptoms is unclear though as discussed may be related to medication side effect. I recommend incentive spirometer use and close watching for worsening of symptoms. Return to the emergency department for worsening symptoms, cough, fevers, or anything else that you are concerned about and feel needs emergency department evaluation. Coding Level of Care Code ED Drug Worker for Taiwo Carter Exam Comprehensive
[2022-06-26 15:28] LABS: Basophils % 0.5 %; Eosinophils # 0.3 10^3/uL (0.0-0.8); Eosinophils % 3.8 %; Hematocrit 39.2 % (42.0-52.0); Hemoglobin 12.6 g/dL (11.7-16.6); Lymphocytes # 1.8 10^3/uL (0.8-4.8); Lymphocytes % 27.1 %; Mean Corpuscular HGB Conc 32.1 g/dL (30.0-36.0); Mean Corpuscular Hemoglobin 30.6 pg (28.0-34.0); Mean Corpuscular Volume 95.1 fl (80-94); Mean Platelet Volume 10.1 fL (7.4-10.4); Monocytes # 0.5 10^3/uL (0.2-0.9); Monocytes % 7.7 %; Neutrophils # 4.04 10^3/uL (1.8-7.7); Neutrophils % 60.6 %; Nucleated Red Blood Cells % 0 %; Platelet Count 188 10^3/cmm (130-400); Red Blood Count 4.12 10^6/uL (4.1-5.3); Red Cell Distribution Width 12.9 % (12.1-15.1); White Blood Count 6.7 10^3/uL (4.0-10.0)
[2022-06-26 15:39] VITALS: BP 126/80; PULSE 66; RESP 16; O2SAT 97
[2022-06-26 15:43] LABS: D Dimer 0.49 ug/mIFEU (0-0.59)
[2022-06-26 15:49] LABS: Troponin(5th) Baseline 12 ng/L (0-15)
[2022-06-26 15:58] LABS: Alanine Aminotransferase 23 U/L (0-41); Albumin Level 3.6 g/dL (3.5-5.2); Alkaline Phosphatase 41 U/L (40-130); Anion Gap 9.1 (5-19); Aspartate Amino Transferase 22 U/L (0-40); Blood Urea Nitrogen 20 mg/dL (8-23); Calcium 8.7 mg/dL (8.5-10.5); Carbon Dioxide 29 mmol/L (22-29); Chloride 104 mmol/L (98-107); Globulin 2.4 g/dL (1.3-4.6); Glucose 99 mg/dL (65-115); NT Pro B Type Natriuretic Pept 896 pg/mL (0-125); Osmolality Calculated 289 mOsm/kg (285-295); Potassium 4.1 mmol/L (3.5-5.1); Sodium 138 mmol/L (136-145); Total Bilirubin 0.5 mg/dL (0.15-1.2)
[2022-06-26 16:11] LABS: SARS Covid-2 Antigen Negative (Negative)
[2022-06-26 16:22] VITALS: BP 145/71; PULSE 57; RESP 18; O2SAT 99
[2022-06-26 17:10] VITALS: BP 143/91; PULSE 59; RESP 18; O2SAT 97
== END 2022-06-26 17:12 | disposition home or self-care (01) ==
PROVIDERS: Emergency Provider Emergency Medicine; PCP Nurse Practitioner Family
DX: R06.02 Shortness of breath (principal); Z20.822 Contact with and (suspected) exposure to COVID-19; Z79.82 Long term (current) use of aspirin; Z79.02 Long term (current) use of antithrombotics/antiplatelets; E78.5 Hyperlipidemia, unspecified; I10 Essential (primary) hypertension
CPT/HCPCS: 36415; 71045; 80053; 83880; 84484; 85025; 85378; 87426; 93005; 99285

== ENCOUNTER → 2022-08-11 14:10 | Outpatient (BNVA) | payer MEDICARE, SELFPAY | PROVIDERS: PCP Nurse Practitioner Family; Visit Provider Internal Medicine Cardiovascular Disease | DX: I25.10 Atherosclerotic heart disease of native coronary artery without angina pectoris (principal); I10 Essential (primary) hypertension; E78.5 Hyperlipidemia, unspecified; Z78.9 Other specified health status | CPT/HCPCS: 99214 ==

== ENCOUNTER → 2022-09-15 10:06 | Outpatient (BNVA) | payer MEDICARE, SELFPAY | PROVIDERS: PCP Nurse Practitioner Family; Visit Provider Nurse Practitioner Family | DX: R05.9 Cough, unspecified (principal); Z20.822 Contact with and (suspected) exposure to COVID-19 | CPT/HCPCS: 87426 ==

== ENCOUNTER → 2023-02-10 14:05 | Outpatient (BNVA) | payer MEDICARE, SELFPAY | PROVIDERS: PCP Nurse Practitioner Family; Visit Provider Nurse Practitioner Family | DX: R10.9 Unspecified abdominal pain (principal) | CPT/HCPCS: 81000 ==

== ENCOUNTER 2023-02-11 09:35 | Outpatient (CLI) | payer MEDICARE, SELFPAY ==
--- NOTE | 2023-02-11 09:42 | XR_ITS ---
WS: [id number] Exam: XR hip BI 2V wo/w pel [id number] Date/Time of Exam: 02/11/2023 10:10 AM Reason For Exam: M25.551 - Pain in right hip Right hip. No fracture or dislocation. Mild to moderate degenerative change. Soft tissue calcificatio n along the greater trochanter that might reflect calcific bursitis. Numerous surgical clips in the r ight pelvis. XR/XR hip BI 2V wo/w pel [id number] IMPRESSION: 1. Mild to moderate DJD. No fracture. 2. Mild calcification along the greater trochanter that might reflect calcific bursitis. Left hip. No fracture or dislocation noted. Mild degenerative change. Soft tiss ue calcification along the left greater trochanter that might reflect calcific bursitis. IMPRESSION: 1. Mild degenerative change. No fracture. 2. Soft tissue calcification along the greater trochanter that might reflect ca lcific bursitis.
== END 2023-02-11 09:36 | disposition home or self-care (01) ==
PROVIDERS: PCP Nurse Practitioner Family; Visit Provider Nurse Practitioner Family
DX: M25.551 Pain in right hip (principal)
CPT/HCPCS: 73521

== ENCOUNTER → 2023-08-10 13:40 | Outpatient (BNVA) | payer MEDICARE, SELFPAY | PROVIDERS: PCP Nurse Practitioner Family; Visit Provider Internal Medicine Cardiovascular Disease | DX: I25.10 Atherosclerotic heart disease of native coronary artery without angina pectoris (principal); I10 Essential (primary) hypertension; E78.5 Hyperlipidemia, unspecified; Z78.9 Other specified health status; Z98.890 Other specified postprocedural states | CPT/HCPCS: 99214 ==

== ENCOUNTER → 2024-01-12 09:23 | Outpatient (BNVA) | payer MEDICARE, SELFPAY | PROVIDERS: PCP Nurse Practitioner Family; Visit Provider Nurse Practitioner Family | DX: M19.012 Primary osteoarthritis, left shoulder (principal) | CPT/HCPCS: 73030 ==

== ENCOUNTER 2024-02-25 08:53 | Outpatient (CLI) | payer MEDICARE, SELFPAY ==
--- NOTE | 2024-02-25 09:00 | CT_ITS ---
WS: [id number] CT LEFT SHOULDER, NONCONTRAST HISTORY: M25.512 - Pain in left shoulder Technique: All CT scans at [facility] use at least one of these dose optimization techniques: automated exposure control; mA and/or kV adjustment per patient size (includes targeted exams where dose is matched to clinical indication); or iterative reconstruction. DLP: 276.39 mGy.cm COMPARISON: Radiograph 01/12/2024 Mild narrowing of the glenohumeral joint. Mild osteophytic ridging around the glenoid. Humeral head i s normally seated in the glenoid. Irregularity involving the surface of the humeral head but no fract ure. Several anchors are noted in the humeral head from prior rotator cuff repair. Anchors appear vonnie ropriate in their position. The scapula is intact. Mild AC joint arthritis. The visualized ribs are n egative. There is very mild atrophy of the supraspinatus and subscapularis muscles. Small amount of fluid in t he axillary pouch. CT/CT shoulder LT wo con* [id number] IMPRESSION: 1. No acute fracture at the LEFT shoulder. 2. Mild degenerative changes at the AC joint and glenohumeral joint. 3. Very mild supraspinatus and subscapularis muscle atrophy. 4. Humeral head anchors from prior rotator cuff surgery.
== END 2024-02-25 08:54 | disposition home or self-care (01) ==
LOC: RAD 08:54
PROVIDERS: PCP Nurse Practitioner Family; Visit Provider Nurse Practitioner Family
DX: M25.512 Pain in left shoulder (principal); M19.012 Primary osteoarthritis, left shoulder
CPT/HCPCS: 73200

== ENCOUNTER → 2024-07-03 11:02 | Outpatient (BNVA) | payer MEDICARE, SELFPAY | PROVIDERS: PCP Nurse Practitioner Family; Visit Provider Internal Medicine | DX: R07.9 Chest pain, unspecified (principal); R06.02 Shortness of breath; E78.5 Hyperlipidemia, unspecified; I25.10 Atherosclerotic heart disease of native coronary artery without angina pectoris; I10 Essential (primary) hypertension; Z78.9 Other specified health status; Z98.890 Other specified postprocedural states | CPT/HCPCS: 99214 ==

== ENCOUNTER 2024-07-13 09:18 | Outpatient (CLI) | payer MEDICARE, SELFPAY ==
[2024-07-13 10:33] LABS: Chol HDL Ratio 1.63 mg/dL (1.0-5.00); Cholesterol 96 mg/dL (0-200); HDL Cholesterol 59 mg/dL (60-100); LDL Cholesterol Calculated 14 mg/dL (50-129); LDL HDL Ratio 0.24 RATIO (0.00-3.22); Triglycerides 116 mg/dL (0-150)
== END 2024-07-13 09:19 | disposition home or self-care (01) ==
LOC: LAB 09:19
PROVIDERS: PCP Nurse Practitioner Family; Visit Provider Internal Medicine
DX: E78.5 Hyperlipidemia, unspecified (principal)
CPT/HCPCS: 36415; 80061

== ENCOUNTER 2024-08-03 07:11 | Outpatient (CLI) | payer MEDICARE, SELFPAY ==
--- NOTE | 2024-08-03 07:45 | USCV_ITS ---
Ian Monroe Age: 74 Gender: M : 1950 Exam Date: 08/03/2024 07:28 Ordering Phys: Fer Spain M.D ([email or web address]) Technologist: JOEL Exam Location: [facility] Indication: CHEST PAIN, SHORTNESS OF BREATH. MV REPAIR BP: 122 / 72 HR: 57 Rhythm: Sinus Technical Quality: Adequate MEASUREMENTS (Male / Female) Normal Values 2D ECHO LV Diastolic Diameter PLAX 5.1 cm 4.2 - 5.9 / 3.9 - 5.3 cm IVS Diastolic Thickness 0.9 cm 0.6 - 1.0 / 0.6 - 0.9 cm IVS Systolic Thickness 1.6 cm LVPW Diastolic Thickness 2.0 cm 0.6 - 1.0 / 0.6 - 0.9 cm LVPW Systolic Thickness 2.4 cm LVOT Diameter 2.0 cm LV Ejection Fraction 2D Teich 60.4 % LV Ejection Fraction MOD 4C 55.4 % LV Ejection Fraction MOD 2C 50.7 % LV Ejection Fraction 2C AL 51.9 % LA Diameter 4.2 cm RA Systolic Volume 4C AL 40.6 ml RA Systolic Volume 4C MOD 38.0 ml LA Sys Volume AL 47.1 cm cubed LA Sys Volume Index AL 24.7 cm cubed/m squared Aorta at Sinotubular Diameter 2.5 cm IVC Diameter 2.2 cm M-MODE LA Ao Ratio MM 1.4 AV Cusp Separation MM 1.6 cm DOPPLER AV Peak Velocity 101.0 cm/s LVOT Peak Velocity 83.0 cm/s AV Area Cont Eq vti 2.2 cm squared AV Area Cont Eq pk 2.7 cm squared MV Peak Velocity 143.0 cm/s MV Area PHT 3.9 cm squared Mitral E to A Ratio 3.0 TR Peak Velocity 196.0 cm/s TR Peak Gradient 15.4 mmHg TR Mean Velocity 154.0 cm/s TR Mean Gradient 10.3 mmHg TR Velocity Time Integral 58.6 cm TV Peak E Velocity 57.0 cm/s Right Atrial Pressure 3.0 mmHg Pulmonary Artery Systolic Pressu 18.4 mmHg PV Peak Velocity 100.0 cm/s RV Ejection Time 0.3 s FINDINGS Left Ventricle Moderately increased left ventricular cavity size. Severely decreased left ventricular systolic function. Global left ventricular hypokinesis. Left ventricular ejection fraction is estimated at 25 %. Grade III/IV diastolic dysfunction (restrictive filling pattern), severely elevated filling pressures. Right Ventricle The right ventricle is normal in size and function. Right Atrium Moderately increased right atrial size. Left Atrium Moderately increased left atrial size. Mitral Valve Moderate mitral annular calcification. Moderately thickened mitral valve. Mild mitral valve regurgitation. Aortic Valve Structurally normal aortic valve without significant sclerosis or stenosis. There is no aortic regurgitation. Tricuspid Valve Fham-rj-jvgiczob tricuspid valve regurgitation. Pulmonic Valve Structurally normal pulmonic valve without significant stenosis. There is no pulmonic regurgitation. Pericardium Normal pericardium without effusion. Aorta Normal ascending aorta dimension. IVC The inferior vena cava appears normal. CONCLUSIONS Moderately increased left ventricular cavity size. Severely decreased left ventricular systolic function. Global left ventricular hypokinesis. Left ventricular ejection fraction is estimated at 25 %. Grade III/IV diastolic dysfunction (restrictive filling pattern), severely elevated filling pressures. IilkchdLyua-jc-wxsmkawl tricuspid valve regurgitation. e biatrial enlargement Moderate mitral annular calcification. Moderately thickened mitral valve. Mild mitral valve regurgitation. There is no pericardial effusion. Pulmonary artery systolic pressure is within normal limits. Right atrial pressure is around 20 mm of mercury. Braxton Cates MD (Electronically Signed) Final Date: 05 August 2024 13:02 S
== END 2024-08-03 07:12 | disposition home or self-care (01) ==
LOC: RAD 07:12
PROVIDERS: PCP Nurse Practitioner Family; Visit Provider Internal Medicine
DX: I50.20 Unspecified systolic (congestive) heart failure (principal); I51.7 Cardiomegaly; I50.30 Unspecified diastolic (congestive) heart failure; I34.81 Nonrheumatic mitral (valve) annulus calcification; R07.9 Chest pain, unspecified; R06.02 Shortness of breath
CPT/HCPCS: 93306

== ENCOUNTER → 2024-08-15 08:54 | Outpatient (BNVA) | payer MEDICARE, SELFPAY | PROVIDERS: PCP Nurse Practitioner Family; Visit Provider Nurse Practitioner Family | DX: I11.0 Hypertensive heart disease with heart failure (principal); I50.41 Acute combined systolic (congestive) and diastolic (congestive) heart failure; I25.10 Atherosclerotic heart disease of native coronary artery without angina pectoris | CPT/HCPCS: 99214 ==

== ENCOUNTER 2024-08-28 06:30 | Outpatient (CLI) | payer MEDICARE, SELFPAY ==
--- NOTE | 2024-08-28 | ECG_ITS ---
[employer] [employer] Test Date: 2024-08-28 Pat Name: Ian Monroe Department: Room: Gender: Male Check Clerk: : 1950 Requested By: Lesly Reeves Order Number: [id number] Rita MD: Haresh Lal M.D. Interpretive Statements Lung unchanged pre/post procedure; Intraprocedure shortess of breath; Symptoms resoled by discharge PROCEDURE: The baseline electrocardiogram showed [normal sinus rhythm with poor R wave progression. QS pattern in leads V3 to V6. 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 At the baseline, the patient's blood pressure was 107/84 mm Hg with a heart rate of 97. The patient exercised for 7 minutes and 15 seconds on a standard Christoph protocol. Patient attained a maximum heart rate of 150 beats per minute(102% of the maximum predicted heart rate) with a blood pressure at the peak exercise of 160/97 mm Hg. The EKG at the peak exercise revealed no significant changes the EKG is somewhat uninterpretable due to the baseline changes. Patient did not have any chest pain or any significant arrhythmis with the exercise Sestamibi was injected 1 minute prior to the peak exercise During the recovery phase, there were no new changes. Blood pressure at the end of the recovery phase was 129/71 mm Hg with a heart rate of 100 per minute. CONCLUSION: 1. No significant EKG changes with the treadmill exercise 2. No exercise-induced chest pain or cardiac arrhythmia 3. Fair exercise tolerance, attained a maximum of 10.2 METs 4. Sestamibi/Sestamibi perfusion results pending; see separate report. Electronically Signed On 09-02-2024 13:43:37 MANAGER MAIL by Haresh Lal M.D. [email or web address]
[2024-08-28 06:44] VITALS: BMI 26.6
--- NOTE | 2024-08-28 06:45 | NMCV_ITS ---
NM rakan perf SPECT r/s* [id number] Ian Monroe Age: 74 Gender: M : 1950 Exam Date: 08/28/2024 07:21 Ordering Phys: Lesly Reeves Technologist: CHEYENNE Canales Exam Location: [facility] Indications: CP STRESS TEST Please see separate stress test report in [employer] for full findings IMAGE PROTOCOL Rest/Stress 1 Exercise Day Radiopharmaceutical Dose (mCi) Administration Site Administered by Rest: Tc-99m 10.9 IV CHEYENNE Canales Sestamibi Stress:Tc-99m 32.8 IV CHEYENNE Miller Sestamibi Rest: 28-Aug-2024 60 Discovery 630 Stress: 28-Aug-2024 30 Discovery 630 Radiopharmaceutical was injected at 96 % maximum heart rate. Images obtained in supine and prone position. SPECT RESULTS Technical Quality: Good Raw Data Analysis: Normal Image Corrections: No attenuation or motion correction applied Summed Stress Score: 4 Summed Rest Score: 1 Summed Difference Score: 3 PERFUSION FINDINGS Small to moderate area of minimal to moderately decreased tracer uptake involving the basal and mid inferolateral and mid inferior wall segments. Some reversibility was noted in the mid inferior basal inferolateral and mid inferior wall segments FUNCTIONAL RESULTS (calculated via Gated SPECT) Stress Image LV EF (%): 54 Stress EDV (mL):83 TID: 1.15 Stress ESV (mL):38 FUNCTIONAL FINDINGS: Segmental wall motion analysis revealing no gross wall motion abnormalities IMPRESSIONS 1. Myocardial perfusion imaging revealing small to moderate area of minimally mild to moderately decreased tracer uptake involving the basal inferolateral inferolateral and inferior regions with some reversibility suggesting myocardial scarring with ischemia in distribution of the left circumflex and right coronary arteries.(The summed stress score was 4 and difference score of 3) 2. Normal LV ejection fraction of 54%. 3. LV wall motion analysis revealing no gross wall motion abnormalities. 4. Normal LV volume No similar previous studies are available for comparison Dr Haresh Lal MD [facility] (Electronically Signed) Final Date: 28 August 2024 14:17 S
[2024-08-28 08:23] VITALS: BP 128/71; PULSE 100
== END 2024-08-28 06:31 | disposition home or self-care (01) ==
LOC: CDL 06:32
PROVIDERS: PCP Nurse Practitioner Family; Visit Provider Nurse Practitioner Family
DX: I25.10 Atherosclerotic heart disease of native coronary artery without angina pectoris (principal); I50.41 Acute combined systolic (congestive) and diastolic (congestive) heart failure; R94.39 Abnormal result of other cardiovascular function study; R06.02 Shortness of breath
CPT/HCPCS: 36415; 78452; 93017; A9500

== ENCOUNTER 2024-09-11 07:14 | Outpatient (CLI) | payer MEDICARE, SELFPAY ==
[2024-09-11 07:30] VITALS: BP 132/78; PULSE 74; RESP 18; TEMP 36.5; O2SAT 98; BMI 26.6
--- NOTE | 2024-09-11 07:30 | XACV_ITS ---
Exam Room: 2 Ht: 168 cm Wt: 75 kg BSA: 1.88 m2 Gender: Male : 1950 Any Known Allergies: Other Exam Priority: Routine Procedure(s): Procedure Description: Diagnostic procedure Procedure Description: PCI procedure Procedure Description: Left Heart Catheterization Procedure Description: Left ventriculography Procedure Description: Drug Eluting Coronary Stent Procedure Description: PTCA Procedure Description: Coronary Angiography Procedure Description: Pressure Wire Lukasz MARTINEZ; Diagnostic Cath Status: Elective Diagnostic Findings * INDICATION: LV dysfunction/abnormal stress test. * Mid Left Anterior Descending: obstructive 60- 70% in-stent restenosis, BENJI: 3 flow. * Mid Right Coronary Artery: Severe 70-80% stenosis, BENJI: 3 flow. * Left Main has no disease. * Circumflex has no disease. * Coronary angiography shows right dominance. PCI Status: Elective Interventional Findings * Procedure detail: We engaged left main artery with XB 3.0 guide catheter. IV heparin was administered to maintain anticoagulation. After normalization, IFR wire was advanced into the distal LAD. iFR value of 0.88 was obtained that was ischemic. We proceeded with balloon angioplasty of severe in-stent restenosis of mid LAD stent with 3.0 x 15 mm NC balloon. At this time final angiogram was performed that showed excellent stent expansion and no residual stenosis. Guidewire was removed. We then turned our attention to mid RCA stenosis. JR4 guide catheter was used to engage the vessel. Run-through wire was used to cross the stenosis. We predilated the stenosis with 3.0 x 25 mm semicompliant balloon. This was followed by placement of 3.5 x 38 mm resolute Goree drug-eluting stent. This was followed by post dilation with 3.75 x 15 mm NC balloon. At this time final angiogram was performed that showed stent stent expansion and no residual stenosis. The guidewire and guide catheter were removed. 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 * Mid Left Anterior Descendin% stenosis treated with a MDT NC EUPHORA RX [id number] BALLOON. 0% residual stenosis, BENJI: 3 flow. * Mid Right Coronary Artery: 70% stenosis treated with a AB TREK 3.00X25 RX BALLOON, JAMEEL R EARLINE 3.5X38 ROLANDO, and MDT NC EUPHORA RX 3.27X50ML BALLOON. 0% residual stenosis, BENJI: 3 flow. Conclusions 1. Severe in-stent restenosis of mid LAD stent status post successful revascularization with balloon angioplasty. Severe mid RCA stenosis status post successful revascularization with 1 stent.. 2. Mild left ventricular systolic dysfunction. Ejection fraction of 40%. 3. Mid Left Anterior Descending was treated with a Balloon. 4. Mid Right Coronary Artery was treated with a Balloon, Drug Eluting Stent, and Balloon. Recommendations * Dual antiplatelet therapy with aspirin and plavix for atleast 1 year. * High intensity statin therapy. * Outpatient cardiology follow up in 2 weeks. Interventional RX Recommendation: PCI w/o planned CABG Diagnostic RX Recommendation: PCI w/o planned CABG Anticoagulation: Heparin Ventriculography Ejection Fraction: 40.0 % Pressures Phase:Rest AO : 105 / 64 ( 80 ) @ 10:26:00 AM 91 / 52 ( 69 ) @ 10:32:00 AM 108 / 65 ( 83 ) @ 11:05:00 AM 120 / 68 ( 90 ) @ 11:13:00 AM 124 / 69 ( 92 ) @ 11:13:00 AM LV : 125 / 5 / 21 @ 11:11:00 AM 112 / 5 / 26 @ 11:12:00 AM Valves Phase:DefaultPhase AV : 0.0 @ 11:22:52 AM AV Mean Gradient: 0.0 @ 11:22:52 AM Clinical Evaluation EBL: 5mL-10mL Procedural Details Procedure Consent Obtained. Admit Source: Out Patient. Pre-Procedure Time Out. Identified patient by full name and date of as verbalized by the patient/guarantor. Does the consent match the physician's order: Yes. Accurate & Complete Informed Consent: Yes. Inpatient/Outpatient History & Physical on Chart: Yes. If H&P is completed, is and addenduem needed: No; If yes, is the addendum complete: No. Visualize and Verify Site with Patient/Guarantor: N/A. Relevant Radiology Images available: Yes. The risks, benefits, and alternatives of sedation and/or procedure were discussed by physician. The patient agrees to continue. Procedure started. [facility] Clinical Fraility Score: 3: Managing Well. Break Out Worker Indications: Stable Known CAD. Chest Pain Symptom Assessment: Typical Angina Symptoms. Correct patient, site and procedure confirmed by cath team. Current diagnosis: Stable angina, LV dysfunctio, Abnormal stress test. PERRLA. Strong, equal hand weed controller bilaterally. Lungs clear x 5 lobes. IV Site on Arrival: 20 gauge in the left forearm. IV Fluids: 0.9% NaCl at KVO. 0 mL infused prior to dentures lab technician. Pre Procedural Pulses: bilateral posterior tibial was 1+. Pre Procedural Pulses: bilateral dorsalis pedis was 3+. Pre Procedural Pulses: bilateral radial was 3+. Oxygen started at 2liters/min via nasal canula. right radial was prepped with chloroprep then draped in the usual sterile fashion. right groin was prepped with chloroprep then draped in the usual sterile fashion. Physician notified. Baseline sample Acquired. HR: 66 BPM. Physician arrived. Physician scrubbed in. Immediate Pre-Procedure Time Out. Correct Patient: Yes; Correct Procedure: Yes; Correct Site: Yes; Correct Patient Position: Yes; Correct Supplies: Yes; Dried Flammable Prep: Yes; Blood Products Available: No;. Lidocaine 1% infiltrated to the right radial. Arterial access obtained. A 5 serbian TIG catheter in over wire. Multiple views taken of left coronary artery. Catheter removed over the exchange wire. A 5 serbian JR4 catheter in over wire. Multiple views taken of right coronary artery. Catheter removed over the exchange wire. Add inventory: Co-company pilot, Endoflator. 6 serbian XB 3 guide catheter was inserted over the wire. iFR pressure guidewire in through guide catheter to lesion in mid LAD. Guidewire advanced across lesion. iFR mid LAD 0.88mmHg. Runthrough guidewire was advanced through the guide catheter to lesion in the mid LAD. Guidewire advanced across lesion. IFR wire out. Balloon inserted to lesion in the mid LAD. Inflation number : 1 A MDT NC EUPHORA RX [id number] BALLOON was prepped and advanced across the Mid LAD , then inflated to 20 JW for 0:19 seconds. Inflation number: 2 The MDT NC EUPHORA RX 3.08F34JW BALLOON was reinflated across the Mid LAD, to 20 JW for 0:12 seconds. Balloon out. iFR wire in through guide catheter to lesion in mid LAD. Runthrough wire out. iFR wire advanced across lesion. iFR mid LAD 0.87mmHg. IFR wire out. Guide catheter out over exchange wire. 6 serbian JR 4 guide catheter was inserted over the wire. Runthrough guidewire was advanced through the guide catheter to lesion in the mid RCA. Inflation number : 1 A AB TREK 3.00X25 RX BALLOON was prepped and advanced across the Mid RCA , then inflated to 8 JW for 0:16 seconds. Inflation number: 2 The AB TREK 3.00X25 RX BALLOON was reinflated across the Mid RCA, to 10 JW for 0:12 seconds. Balloon out. Stent inserted to lesion in the mid RCA. Balloon inserted to lesion in the mid RCA. Unable to cross. Undeployed 3.5 X 38mm stent out over wire. 6fr Guideliner in over runthrough wire. Stent inserted to lesion in the mid RCA. Inflation Number : 3 A MDT R EARLINE 3.5X38 ROLANDO -Lot Number# [id number] EXP 02-17-2027 was prepped and advanced across the Mid RCA. The stent was deployed at 12 JW for 0:24 seconds. Stent balloon out over wire. Balloon inserted to lesion in the mid RCA. Inflation number : 4 A MDT NC EUPHORA RX [id number] BALLOON was prepped and advanced across the Mid RCA , then inflated to 16 JW for 0:18 seconds. Inflation number: 5 The MDT NC EUPHORA RX 3.18O76IB BALLOON was reinflated across the Mid RCA, to 18 JW for 0:15 seconds. Inflation number: 6 The MDT NC EUPHORA RX 3.12S91AC BALLOON was reinflated across the Mid RCA, to 18 JW for 0:12 seconds. Balloon out. Guideliner out. Results checked. runthrough wire out. Results checked. Guide catheter out. A 5 serbian Angled Pig catheter in over wire. EDP Sample taken: LV 125/5,21; HR: 63 BPM; SpO2: 96%. LV gram performed in NICHOLAS @ 10 mL/second for a total of 30 mL. EDP Sample taken: LV 112/5,26; HR: 67 BPM; SpO2: 97%. Pullback taken: LV Off; AO 120/68(90); Mean: 0mmHg, Peak to Peak: 0mmHg, SEP: 5sec/min; HR: 57 BPM; SpO2: 97%. ACT drawn. Results 319 seconds. Therapeutic limits - pre-heparin administration 90-150 seconds and monitoring heparin during a vascular procedure >250 seconds. Catheter removed over the exchange wire. Physician scrubbed out. A TR Band was successful obtaining hemostatsis at the Right Radial artery insertion site. Post Procedure: Pulses reassessed and unchanged. PERRLA. Strong, equal hand weed controller bilaterally. No VTE prophylaxis required. Medication's Wasted: Lidocaine 1% = 18 mg. Medication's Wasted: Nitro = 49.7 mg. Medication's Wasted: Heparin = 3000 unit. Total IV fluids: 275 mL. Post-op diagnosis: Signifiant mid RCA stenosis, status post PCI placement of 1 stent. Severe ISR mid LAD s/p balloon angioplasty. Complications: None. Estimated blood loss: 5mL-10mL. Responsiveness - Normal response to verbal stimuli; alert and oriented, PERRLA. Airway - Unaffected, no intervention required; spontaneous ventilation. Circulation: W/N/L, pulses unchanged. Nausea/Vomiting: No. Procedure completed. Patient transferred by wheelchair to CPRU. Vital chart was stopped. Access Site Site: Right Radial artery Sheath Size: 6 Fr Hemostasis Method: TR Band Hemostasis Success: Successful Procedure Medications Start: 10:12 AM Stop: 10:12 AM Medication: Versed Amount: 1 mg Route: I.V. Start: 10:12 AM Stop: 10:12 AM Medication: Fentanyl Amount: 50 mcg Route: I.V. Start: 10:17 AM Stop: 10:17 AM Medication: Nitrogylcerin Amount: 200 mcg Route: I.A. Start: 10:20 AM Stop: 10:20 AM Medication: Heparin Amount: 6000 units Route: I.V. Start: 10:31 AM Stop: 10:31 AM Medication: Heparin Amount: 1000 units Route: I.V. Start: 10:32 AM Stop: 10:32 AM Medication: Versed Amount: 1 mg Route: I.V. Start: 10:44 AM Stop: 10:44 AM Medication: Nitrogylcerin Amount: 100 mcg Route: I.A. Start: 10:44 AM Stop: 10:44 AM Medication: 0.9% Saline Amount: 200 ml Route: I.V. bolus Start: 10:45 AM Stop: 10:45 AM Medication: Heparin Amount: 1000 units Route: I.V. Start: 10:54 AM Stop: 10:54 AM Medication: Fentanyl Amount: 25 mcg Route: I.V. Start: 11:04 AM Stop: 11:04 AM Medication: Fentanyl Amount: 25 mcg Route: I.V. Start: 11:14 AM Stop: 11:14 AM Medication: Plavix Amount: 300 mg Route: P.O. I, the attending physician, have reviewed and verified all procedure medications. Yes, all medications given per verbal order History/Risk Factors Hypertension: Yes Dyslipidemia: Yes Peripheral Arterial Disease (PAD): No Myocardial Infarction (UT): No Obesity: No Renal Disease: No Tobacco Use: Never Prior Interventions PCI: Yes CABG: No Valve Surgery: Yes Date of PCI: 10/22/2019 Report Signatures Finalized by Fer Spain MD on 09/17/2024 11:35 AM
[2024-09-11] MEDS: diphenhydrAMINE 50 mg Capsule PO (07:40)
[2024-09-11 08:10] LABS: Anion Gap 12.1 (5-19); Basophils % 0.7 %; Blood Urea Nitrogen 18 mg/dL (8-23); Carbon Dioxide 29 mmol/L (22-29); Chloride 105 mmol/L (98-107); Creatinine Clr Calc Pharmacy 70.5332; Eosinophils # 0.3 10^3/uL (0.0-0.8); Eosinophils % 4.1 %; Glucose 108 mg/dL (65-115); Hematocrit 43.7 % (37-53); Lymphocytes % 33.2 %; Mean Corpuscular Hemoglobin 30.1 pg (27-33); Mean Corpuscular Volume 91.2 fl (82-101); Mean Platelet Volume 10.1 fL (7.4-10.4); Monocytes # 0.5 10^3/uL (0.2-0.9); Monocytes % 8.1 %; Neutrophils % 53.6 %; Nucleated Red Blood Cells % 0 %; Osmolality Calculated 296 mOsm/kg (285-295); Platelet Count 207 10^3/cmm (157-399); Potassium 4.1 mmol/L (3.5-5.1); Red Blood Count 4.79 10^6/uL (3.85-5.65); Sodium 142 mmol/L (136-145); White Blood Count 6.15 10^3/uL (3.29-11.43)
--- NOTE | 2024-09-11 08:53 | W.PM.OPSUD ---
Surgery/Procedure H&P Update DATE OF PROCEDURE: September 11, 2024 DATE H&P PERFORMED: 08/15/24 H&P UPDATE INFORMATION: I have reviewed H&P completed within last 30 days, I have examined patient prior to procedure, No changes to prior documentation and Changes to prior documentation as noted here PREOP DIAGNOSIS: ASHD PRIMARY INDICATION FOR PROCEDURE: Cardiomyopathy/abnormal Myocardial perfusion imaging PLANNED PROCEDURE: Operation Date: 09/11/24 08:30 Proposed Procedures p Cardiac Catheterization(Left) - Haresh Lal MD PATIENT REASSESSED PRIOR TO SEDATION, WITH NO CHANGE NOTED: Yes PHYSICAL EXAM: alert, oriented x 3 and clear to auscultation bilaterally AIRWAY EVAL/ANESTHESIA PLAN: normal airway, see other exam findings, ASA III, Monitored Anesthesia, Local Anesthesia and Risks, benefits & alternatives of sedation and/or procedure discussed
--- NOTE | 2024-09-11 10:02 | W.PM.OPSUD ---
Surgery/Procedure H&P Update DATE OF PROCEDURE: September 11, 2024 DATE H&P PERFORMED: 08/15/24 H&P UPDATE INFORMATION: I have reviewed H&P completed within last 30 days, I have examined patient prior to procedure and No changes to prior documentation PREOP DIAGNOSIS: LV dysfunction/abnormal stress test PRIMARY INDICATION FOR PROCEDURE: LV dysfunction/abnormal stress test PLANNED PROCEDURE: Operation Date: 09/11/24 08:30 Proposed Procedures p Cardiac Catheterization(Left) - Fer Spain MD Possible percutaneous coronary intervention PATIENT REASSESSED PRIOR TO SEDATION, WITH NO CHANGE NOTED: Yes PHYSICAL EXAM: alert, oriented x 3, clear to auscultation bilaterally and regular rate & rhythm AIRWAY EVAL/ANESTHESIA PLAN: normal airway, ASA III, Local Anesthesia, Risks, benefits & alternatives of sedation and/or procedure discussed and Patient agrees to continue as planned ADDITIONAL INFORMATION: Moderate sedation
[2024-09-11] MEDS: sodium chloride 0.9% 1,000 ML 100 ML IV ×2 (11:30→19:11)
[2024-09-11 11:46] VITALS: BMI 27.4
--- NOTE | 2024-09-11 11:49 | PC.NURSE ---
received from cardiac cathodic protection technician at 1130 via w/c.report received.pt is alert and awake and oriented x 4.denies pain.sr/sb on monitor.right radial tr band intact and inflated.right hand is warm to touch and with brisk capillary refill.palpable radial pulse noted distal to tr band.no hematoma noted.pt instructed in activity restrictions s/p radial artery procedure and instructed to notify staff for any bleeding,pain,numbness,sob,or for any concerns at all.pt verb understanding of instructions
[2024-09-11 12:37] VITALS: BP 91/53; PULSE 65; TEMP 36.4; O2SAT 98
[2024-09-11 14:00] VITALS: PULSE 63
[2024-09-11 17:00] VITALS: BP 116/67; PULSE 65; RESP 16; TEMP 36.3; O2SAT 98
--- NOTE | 2024-09-11 17:06 | PC.NURSE ---
tr band slowly deflated and eventually removed at 1600.right hand remains warm to touch and with brisk capillary refill.palpable radial pulse noted.no hematoma noted.site dressed with 2x2 gauze and secured with biocclusive drsg.pt instructed in activity restrictions s/p tr band removal...and instructed to notify staff for any bleeding,pain,numbness,sob...or for any concerns at all.pt verb understanding of instructions
[2024-09-11 22:00] VITALS: PULSE 63
[2024-09-12 00:03] VITALS: BP 126/78; PULSE 65; RESP 12; TEMP 36.9; O2SAT 96
[2024-09-12 04:01] VITALS: BP 113/64; PULSE 72; RESP 13; TEMP 36.9; O2SAT 97
[2024-09-12 04:21] LABS: Basophils % 0.5 %; Eosinophils # 0.3 10^3/uL (0.0-0.8); Eosinophils % 3.5 %; Hematocrit 39.5 % (37-53); Lymphocytes # 1.7 10^3/uL (0.8-4.8); Lymphocytes % 22.9 %; Mean Corpuscular HGB Conc 33.2 g/dL (30-55); Mean Corpuscular Hemoglobin 29.6 pg (27-33); Mean Corpuscular Volume 89.4 fl (82-101); Monocytes # 0.5 10^3/uL (0.2-0.9); Monocytes % 6.1 %; Neutrophils # 4.93 10^3/uL (1.8-7.7); Neutrophils % 66.7 %; Nucleated Red Blood Cells % 0 %; Platelet Count 187 10^3/cmm (157-399); Red Blood Count 4.42 10^6/uL (3.85-5.65); White Blood Count 7.39 10^3/uL (3.29-11.43)
[2024-09-12 04:36] LABS: Anion Gap 12.4 (5-19); Blood Urea Nitrogen 12 mg/dL (8-23); Calcium 8.6 mg/dL (8.5-10.5); Carbon Dioxide 26 mmol/L (22-29); Chloride 107 mmol/L (98-107); Creatinine Clr Calc Pharmacy 80.4051; Glucose 83 mg/dL (65-115); Osmolality Calculated 291 mOsm/kg (285-295); Potassium 4.4 mmol/L (3.5-5.1); Sodium 141 mmol/L (136-145)
[2024-09-12 06:00] VITALS: PULSE 61
[2024-09-12 07:34] VITALS: BP 132/67; PULSE 61; RESP 18; TEMP 36.6; O2SAT 97
[2024-09-12] MEDS: clopidogrel 75 mg Tablet PO (08:31)
[2024-09-12] MEDS: metoprolol succinate ER (24 HR) 50 mg Tablet 25 MG PO (08:31)
[2024-09-12] MEDS: ezetimibe 10 mg Tablet PO (08:31)
[2024-09-12] MEDS: isosorbide mononitrate ER 30 mg Tablet PO (08:31)
[2024-09-12] MEDS: aspirin 81 mg EC Tablet PO (08:31)
[2024-09-12 09:50] VITALS: BP 113/67; PULSE 66; RESP 16; O2SAT 96
--- NOTE | 2024-09-12 09:51 | PC.NURSE ---
Patient is discharged with chest pain stoplight, coronary angioplasty, and post angiogram home care intructions, medication review, and follow up visits. Discharged with via a private car.
--- NOTE | 2024-09-12 10:03 | P.DS_ITS ---
<Statement entered by Fer Spain M.D - 09/13/24 08:34> Patient was evaluated and cared for in conjunction with an advanced practice practitioner.? I personally examined the patient and reviewed the chart and all pertinent data including imaging, telemetry, and laboratory results.? I discussed the patient in detail with the advanced practice practitioner.? Please see? their note for full discharge summary, testing result and agreed upon plan of care for the patient with following correction (patient had stenting of RCA and balloon angioplasty of mid LAD in-stent restenosis). S/p PCI of mid RCA with 1 stent and balloon angioplasty of mid LAD in-stent restenosis. Documented by User: Carol Lo NP 09/12/24 10:14 Discharge Providers Date of Admission: 09/11/2024 Date of Discharge: September 12, 2024 Attending Provider at Admission: Dr. Spain Attending Provider at Discharge: Haresh Lal MD Consults: None Primary Care Provider: PIEDAD Smith Diagnoses at Discharge Discharge Diagnosis (1) CAD (coronary artery disease): Details from hospital stay: Patient received mid RCA and mid LAD stent x 1 continue dual antiplatelet therapy for at least 1 year including aspirin Plavix Status: Acute Qualifiers: Associated angina: without angina Coronary Disease-Associated Artery/Lesion type: kashia artery [place] vs. transplanted heart: kashia heart Qualified Code(s): I25.10 - Atherosclerotic heart disease of kashia coronary artery without angina pectoris (2) Chest pain: Details from hospital stay: Resolved status post angioplasty and stenting of RCA and mid LAD Status: Acute Qualifiers: Chest pain type: unspecified Qualified Code(s): R07.9 - Chest pain, unspecified (3) Dyslipidemia: Details from hospital stay: Well-controlled. Patient is allergic to statins. Continue current care. Status: Acute (4) Hypertension: Details from hospital stay: Well-controlled. Continue current regimen Status: Acute Qualifiers: Hypertension type: essential hypertension Qualified Code(s): I10 - Essential (primary) hypertension (5) Unstable angina: Details from hospital stay: Resolved status post stenting to the mid RCA mid LAD Status: Acute (6) Systolic and diastolic CHF, acute: Details from hospital stay: EF 35 to 40%. Patient is currently on Entresto and metoprolol. Continue these up titrate to maximum dosage as tolerated repeat echo 3 months Status: Acute (7) History of mitral valve repair: Details from hospital stay: Most recent echo showed mild mitral valve regurg. Repeat echo 3 months for EF evaluation Status: Acute Reason for Visit Reason for Visit: I50.4 Brief History: The patient is a 74-year-old male presentined with decreased cardiac function. The patient has a notable cardiac history, including a mitral valve repair in 2010 and previous stenting of the left anterior descending artery. An echocardiogram conducted on 08/03/24 demonstrated a significant reduction in cardiac pumping function from the normal range of 55-60% to 25%. Additionally, the echocardiogram revealed grade 3 diastolic dysfunction, mild mitral regurgitation, and mild to moderate tricuspid regurgitation. The patient reported experiencing occasional shortness of breath associated with holding his breath inadvertently but denied consistent chest pain, pressure, tightness, or peripheral edema. There have been no reported issues with orthopnea, as the patient sleeps flat and has not observed fluid retention or weight changes, although he does not routinely weigh himself. The patient's symptoms include fatigue following physical exertion, though he characterizes himself as very active. There is family concern about overexertion potentially leading to adverse cardiac events. Hospital Course Hospital Course Patient underwent a left heart catheter the above-named reasons and underwent mid RCA stent x 1, mid LAD ISR underwent IFR which resulted in abnormal IFR and balloon angioplasty of the mid LAD. Patient tolerated procedure well with no complications. EF was seen at 35 to 40% on LV gram. Currently on Entresto and metoprolol. He will continue this and dual antiplatelet therapy including aspirin and Plavix for at least 1 year follow-up in the clinic in 7 to 10 days. He will need to have an echo at 3 months. At this time we cannot titrate up his Entresto due to hypotensive episodes with the middle dose in the 80s systolic. Physical Exam Narrative: General: No apparent distress, healthy appearing, well nourished Muskuloskeletal: Full ROM Lymphatic: no lymphedema noted Respiratory: Normal respiratory effort, clear to auscultation bilaterally throughout all lung jonhson, no use of accessory muscles Cardio: No JVD, regular rate, regular rhythm, S1 S2 normal, no murmurs, peripheral pulses 2+ throughout GI: Normal to inspection, nondistended Extremities: Full ROM, normal, normal capillary refill, no cyanosis or edema Neuro: Alert and oriented x4, no focal motor deficits Psych: Affect normal, denies suicidal ideation, mental status grossly normal Skin: Right wrist heart cath site clean dry intact, no s/s of hematoma Discharge Data Studies Completed and Pending Pending at discharge Category Date Time Status 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 for service Routine Exams 09/11/24 07:30 Taken Laboratory Results WBC 7.39 10^3/uL (3.29-11.43) 09/12/24 03:47 RBC 4.42 10^6/uL (3.85-5.65) 09/12/24 03:47 Hgb 13.10 g/dL (11.27-16.99) 09/12/24 03:47 Hct 39.5 % (37-53) 09/12/24 03:47 MCV 89.4 fl (82-101) 09/12/24 03:47 MCH 29.6 pg (27-33) 09/12/24 03:47 MCHC 33.2 g/dL (30-55) 09/12/24 03:47 RDW 11.0 % (12.1-15.1) L 09/12/24 03:47 Plt Count 187 10^3/cmm (157-399) 09/12/24 03:47 MPV 10.0 fL (7.4-10.4) 09/12/24 03:47 Neut % (Auto) 66.7 % 09/12/24 03:47 Lymph % (Auto) 22.9 % 09/12/24 03:47 [place] % (Auto) 6.1 % 09/12/24 03:47 Eos % (Auto) 3.5 % 09/12/24 03:47 Baso % (Auto) 0.5 % 09/12/24 03:47 Neut # (Auto) 4.93 10^3/uL (1.8-7.7) 09/12/24 03:47 Lymph # (Auto) 1.7 10^3/uL (0.8-4.8) 09/12/24 03:47 [place] # (Auto) 0.5 10^3/uL (0.2-0.9) 09/12/24 03:47 Eos # (Auto) 0.3 10^3/uL (0.0-0.8) 09/12/24 03:47 Baso # (Auto) 0.0 10^3/uL (0.0-0.1) 09/12/24 03:47 Nucleated RBC % (auto) 0 % 09/12/24 03:47 Nucleated RBCs # 0.0 /100WBC 09/12/24 03:47 Sodium 141 mmol/L (136-145) 09/12/24 03:47 Potassium 4.4 mmol/L (3.5-5.1) 09/12/24 03:47 Chloride 107 mmol/L (98-107) 09/12/24 03:47 Carbon Dioxide 26 mmol/L (22-29) 09/12/24 03:47 Anion Gap 12.4 (5-19) 09/12/24 03:47 BUN 12 mg/dL (8-23) 09/12/24 03:47 Creatinine 0.8 mg/dL (0.7-1.2) 09/12/24 03:47 GFR Calculation Not Reportable 09/12/24 03:47 Glucose 83 mg/dL (65-115) 09/12/24 03:47 Calculated Osmolality 291 mOsm/kg (285-295) 09/12/24 03:47 Calcium 8.6 mg/dL (8.5-10.5) 09/12/24 03:47 Vitals Last Vital Signs Temp 97.9 F 09/12/24 07:34 Pulse 66 09/12/24 09:50 Resp 16 09/12/24 09:50 BP 113/67 09/12/24 09:50 Pulse Ox 96 09/12/24 09:50 O2 Del Method Room Air 09/12/24 09:50 Discharge Plan Discharge Patient Disposition: Home Prescriptions: Continued aspirin [Adult Aspirin Regimen] 81 mg tablet,delayed release (DR/EC) 81 mg PO DAILY tamsulosin 0.4 mg capsule See Rx Instructions .ROUTE .COMPLEX Qty: 180 3RF Dose Instruction: TAKE 1 CAPSULE BY MOUTH TWICE DAILY Rx Instructions: TAKE 1 CAPSULE BY MOUTH TWICE DAILY Zetia 10 mg tablet 10 mg PO DAILY Qty: 90 3RF nitroglycerin 0.4 mg tablet, sublingual 0.4 mg SUBLINGUAL Q5M PRN (Reason: chest pain) Qty: 25 6RF Rx Instructions: until response; do not exceed 3 doses per episode azelastine 137 mcg (0.1 %) aerosol,spray 2 spray intranasal BID Qty: 30 1RF Rx Instructions: administer into each nostril triamcinolone acetonide 0.1 % cream 1 applic topical QID Qty: 15 0RF dutasteride 0.5 mg capsule See Rx Instructions .ROUTE .COMPLEX Qty: 90 3RF Dose Instruction: TAKE ONE CAPSULE BY MOUTH DAILY Rx Instructions: TAKE ONE CAPSULE BY MOUTH DAILY isosorbide mononitrate 30 mg tablet extended release 24 hr 30 mg PO DAILY Qty: 90 3RF clopidogrel 75 mg tablet 75 mg PO DAILY Qty: 90 3RF sacubitril-valsartan 49-51 mg tablet 0.5 tab PO BID Qty: 180 1RF metoprolol succinate 50 mg tablet extended release 24 hr 25 mg PO DAILY Qty: 90 3RF Repatha SureClick 140 mg/mL pen injector See Rx Instructions .ROUTE .COMPLEX Qty: 6 3RF Dose Instruction: ADMINISTER 1 ML UNDER THE SKIN EVERY 2 WEEKS. Rx Instructions: ADMINISTER 1 ML UNDER THE SKIN EVERY 2 WEEKS. Vitamin D3 25 mcg (1,000 unit) capsule 4,000 unit PO DAILY Discharge Orders: Discharge Order (Routine); Ordered 09/12/24 Ordered By: Fer Spain Referrals: Carol Lo NP [Nurse Practitioner] - 09/20/24 2:30 pm (7-10 days) Marci Russo FNP [Primary Care Provider] - 09/19/24 1:00 pm Diet: Cardiac Activity: Increase activity as tolerated Patient Instructions: Coronary Angioplasty (DC), Chest Pain Stoplight, Post Angiogram Home Care Instructions Activity Restrictions/Additional Instructions: Discussed with patient no heavy lifting more than a gallon of milk for 3 days. No driving for 3 days. Monitor for and report signs or symptoms of bleeding. Monitor for and report s/s of infection such as fever 101 or greater, swelling, redness or pain to the wrist. Discharge Date/Time: 09/12/24 10:13 Discharge Attestations Time Spent in Discharge Care*: less than 30 min Quality Metrics Clinical Quality Measures [ No reported AMI, CVA or VTE this stay] Coding Level of Care Code Acute Code for g Fwd Diagnoses Coronary artery disease involving kashia coronary artery of kashia heart without angina pectoris I25.10 Associated angina: without angina Coronary Disease-Associated Artery/Lesion type: kashia artery [place] vs. transplanted heart: kashia heart Chest pain, unspecified type R07.9 Chest pain type: unspecified Dyslipidemia E78.5 Essential hypertension I10 Hypertension type: essential hypertension Unstable angina I20.0 Systolic and diastolic CHF, acute I50.41 History of mitral valve repair Z98.890 Documented by User: Fer Spain M.D 09/13/24 08:30 Discharge Providers Attending Provider at Discharge: Fer Spain MD Diagnoses at Discharge Discharge Diagnosis (1) CAD (coronary artery disease): Status: Acute Qualifiers: Associated angina: without angina Coronary Disease-Associated Artery/Lesion type: k[place]ia artery [place] vs. transplanted heart: kashia heart Qualified Code(s): I25.10 - Atherosclerotic heart disease of k[place] coronary artery without angina pectoris (2) Chest pain: Status: Acute Qualifiers: Chest pain type: unspecified Qualified Code(s): R07.9 - Chest pain, unspecified (3) Dyslipidemia: Status: Acute (4) Hypertension: Status: Acute Qualifiers: Hypertension type: essential hypertension Qualified Code(s): I10 - Essential (primary) hypertension (5) Unstable angina: Status: Acute (6) Systolic and diastolic CHF, acute: Status: Acute (7) History of mitral valve repair: Status: Acute Reason for Visit Reason for Visit: I50.4 Hospital Course Hospital Course Patient underwent a left heart catheter the above-named reasons and underwent mid RCA stent x 1, mid LAD ISR underwent IFR which resulted in abnormal IFR and balloon angioplasty of the mid LAD. Patient tolerated procedure well with no complications. EF was seen at 35 to 40% on LV gram. Currently on Entresto and metoprolol. He will continue this and dual antiplatelet therapy including aspi rin and Plavix for at least 1 year follow-up in the clinic in 7 to 10 days. He will need to have an echo at 3 months. At this time we cannot titrate up his Entresto due to hypotensive episodes with the middle dose in the 80s systolic. Physical Exam Narrative: GENERAL: Patient is alert, awake and oriented x3. [] NECK: No jugular vein distension. [] HEENT: No cyanosis. No icterus. No pallor. [] HEART: Regular S1 and S2. No murmur, rub or gallop. [] LUNGS: Clear to auscultate bilaterally. [] CENTRAL NERVOUS SYSTEM: Grossly nonfocal. [] EXTREMITIES: Lower extremities with 1+ edema bilaterally. Discharge Plan Discharge Patient Disposition: Home Prescriptions: Continued aspirin [Adult Aspirin Regimen] 81 mg tablet,delayed release (DR/EC) 81 mg PO DAILY tamsulosin 0.4 mg capsule See Rx Instructions .ROUTE .COMPLEX Qty: 180 3RF Dose Instruction: TAKE 1 CAPSULE BY MOUTH TWICE DAILY Rx Instructions: TAKE 1 CAPSULE BY MOUTH TWICE DAILY Zetia 10 mg tablet 10 mg PO DAILY Qty: 90 3RF nitroglycerin 0.4 mg tablet, sublingual 0.4 mg SUBLINGUAL Q5M PRN (Reason: chest pain) Qty: 25 6RF Rx Instructions: until response; do not exceed 3 doses per episode azelastine 137 mcg (0.1 %) aerosol,spray 2 spray intranasal BID Qty: 30 1RF Rx Instructions: administer into each nostril triamcinolone acetonide 0.1 % cream 1 applic topical QID Qty: 15 0RF dutasteride 0.5 mg capsule See Rx Instructions .ROUTE .COMPLEX Qty: 90 3RF Dose Instruction: TAKE ONE CAPSULE BY MOUTH DAILY Rx Instructions: TAKE ONE CAPSULE BY MOUTH DAILY isosorbide mononitrate 30 mg tablet extended release 24 hr 30 mg PO DAILY Qty: 90 3RF clopidogrel 75 mg tablet 75 mg PO DAILY Qty: 90 3RF sacubitril-valsartan 49-51 mg tablet 0.5 tab PO BID Qty: 180 1RF metoprolol succinate 50 mg tablet extended release 24 hr 25 mg PO DAILY Qty: 90 3RF Repatha SureClick 140 mg/mL pen injector See Rx Instructions .ROUTE .COMPLEX Qty: 6 3RF Dose Instruction: ADMINISTER 1 ML UNDER THE SKIN EVERY 2 WEEKS. Rx Instructions: ADMINISTER 1 ML UNDER THE SKIN EVERY 2 WEEKS. Vitamin D3 25 mcg (1,000 unit) capsule 4,000 unit PO DAILY Discharge Orders: Discharge Order (Routine); Ordered 09/12/24 Ordered By: Fer Spain Referrals: Carol Lo NP [Nurse Practitioner] - 09/20/24 2:30 pm (7-10 days) Marci Russo FNP [Primary Care Provider] - 09/19/24 1:00 pm Diet: Cardiac Activity: Increase activity as tolerated Patient Instructions: Coronary Angioplasty (DC), Chest Pain Stoplight, Post Angiogram Home Care Instructions Activity Restrictions/Additional Instructions: Discussed with patient no heavy lifting more than a gallon of milk for 3 days. No driving for 3 days. Monitor for and report signs or symptoms of bleeding. Monitor for and report s/s of infection such as fever 101 or greater, swelling, redness or pain to the wrist. Discharge Date/Time: 09/12/24 10:13 Coding Level of Care Code Acute Code for Chg Fwd Diagnoses Coronary artery disease involving kashia coronary artery of kashia heart without angina pectoris I25.10 Associated angina: without angina Coronary Disease-Associated Artery/Lesion type: kashia artery [place] vs. transplanted heart: kashia heart Chest pain, unspecified type R07.9 Chest pain type: unspecified Dyslipidemia E78.5 Essential hypertension I10 Hypertension type: essential hypertension Unstable angina I20.0 Systolic and diastolic CHF, acute I50.41 History of mitral valve repair Z98.890
== END 2024-09-12 10:13 | disposition home or self-care (01) ==
LOC: CCL 07:15 → CSU 11:23
PROVIDERS: Internal Medicine; PCP Nurse Practitioner Family; Visit Provider Internal Medicine Cardiovascular Disease
DX: I25.110 Atherosclerotic heart disease of native coronary artery with unstable angina pectoris (principal); E78.5 Hyperlipidemia, unspecified; I11.0 Hypertensive heart disease with heart failure; I50.41 Acute combined systolic (congestive) and diastolic (congestive) heart failure; Z98.890 Other specified postprocedural states; Z79.82 Long term (current) use of aspirin; N40.1 Benign prostatic hyperplasia with lower urinary tract symptoms; N13.8 Other obstructive and reflux uropathy
CPT/HCPCS: 36415; 80048; 85025; 85347; 92920; 93458; 93571; 96365; 96374; 96376; 99152; 99153; C1725; C1769; C1874; C1887; C1894; C9600; J1644; J2250; J3010; J3490; J7030; Q0163; Q9967

== ENCOUNTER → 2024-09-20 15:52 | Outpatient (BNVA) | payer MEDICARE, SELFPAY | PROVIDERS: PCP Nurse Practitioner Family; Visit Provider Nurse Practitioner Family | DX: I25.10 Atherosclerotic heart disease of native coronary artery without angina pectoris (principal); I50.41 Acute combined systolic (congestive) and diastolic (congestive) heart failure | CPT/HCPCS: 36415; 80048; 83880; 85025 ==

== ENCOUNTER 2024-09-29 09:27 | Outpatient (CLI) | payer MEDICARE, SELFPAY ==
--- NOTE | 2024-09-29 09:29 | XR_ITS ---
WS: [email or web address] Exam: XR lumbar spine 2-3V* [id number] Date/Time of Exam: 09/29/2024 9:32 AM Reason For Exam: M54.50 - Low back pain, unspecified No fracture or malalignment. Degenerative vacuum disc at L5-S1. Mild disc space narrowing at the gopal ining levels. Spondylosis at all levels. Facet DJD at L5-S1. Slight levoscoliosis. IMPRESSION1. Degenerative changes and spondylosis. Slight scoliosis. 2. No fracture.
--- NOTE | 2024-09-29 09:29 | XR_ITS ---
WS: [email or web address] Exam: XR hip RT 2-3V wo/w pel* [id number] Date/Time of Exam: 09/29/2024 9:32 AM Reason For Exam: M25.551 - Pain in right hip Comparison 02/11/2023. No fracture. Moderate degenerative change of the joint compartment. Mild calcification along the grea ter trochanter that might reflect bursitis. Numerous surgical clips in the RIGHT pelvis. XR/XR hip RT 2-3V wo/w pel* [id number] IMPRESSION: 1. Moderate DJD. No fracture. 2. Small soft tissue calcification along the greater trochanter that might ramon belen calcific bursitis. Exam unchanged since previous study.
== END 2024-09-29 09:28 | disposition home or self-care (01) ==
LOC: RAD 09:28
PROVIDERS: PCP Nurse Practitioner Family; Visit Provider Nurse Practitioner Family
DX: M16.11 Unilateral primary osteoarthritis, right hip (principal); M48.07 Spinal stenosis, lumbosacral region; M47.896 Other spondylosis, lumbar region; M48.061 Spinal stenosis, lumbar region without neurogenic claudication; M47.897 Other spondylosis, lumbosacral region; M25.851 Other specified joint disorders, right hip; Z96.89 Presence of other specified functional implants
CPT/HCPCS: 72100; 73502

== ENCOUNTER 2024-10-17 14:27 | Outpatient (CLI) | payer MEDICARE, SELFPAY ==
--- NOTE | 2024-10-17 14:30 | MRR_ITS ---
PROCEDURE INFORMATION: Exam: MR Right Lower Extremity Joint Without Contrast; Hip Exam date and time: 10/17/2024 2:47 PM Age: 74 years old Clinical indication: Pain; Hip; Right; Additional info: M24.851 - other specific joint derangements of right hip, . . . TECHNIQUE: Imaging protocol: Magnetic resonance imaging of the right lower extremity joint without contrast. Exam focused on the hip. COMPARISON: CR XR hip RT 2-3V wo/w pel* [id number] 09/29/2024 9:32 AM FINDINGS: Bones/joints: Moderate osteoarthritis of the right hip with intermediate grade chondromalacia and marginal osteophytes. No significant joint effusion. No evidence of fracture or osseous lesion. No evidence of osteonecrosis or inflammatory arthropathy. Labrum: Degenerative tear of the superior labrum with a 8 mm paralabral cyst along the posterosuperior aspect of the acetabulum (image 11 of series 701 and image 15 of series 601). If further detail is clinically warranted, consider correlation with follow-up outpatient MR arthrography. Muscles/tendons: Moderate tendinosis and peritendinitis of the gluteus minimus/medius tendons. Moderate-severe tendinosis of the rectus femoris tendon, particularly of the indirect head at its origin from the superolateral acetabulum (for example, image 21 of series 601). Moderate hamstring tendinosis with chronic low-grade partial tear at the ischial tuberosity. No evidence of acute injury. Soft tissues: No evidence of fluid collection or hematoma. Enlarged prostate measuring 5.5 cm. Consider correlation with serum laboratory findings and outpatient urologic evaluation. MR/MR hip RT wo con* [id number] IMPRESSION: 1. Moderate osteoarthritis of the right hip without acute osseous abnormality. 2. Degenerative tear of the superior labrum with paralabral cyst. 3. Moderate-severe rectus femoris and moderate gluteal tendinosis. 4. Chronic low-grade partial tear of the hamstring tendon origin on a background of tendinosis.
== END 2024-10-17 14:28 | disposition home or self-care (01) ==
LOC: RAD 14:28
PROVIDERS: PCP Nurse Practitioner Family; Visit Provider Nurse Practitioner Family
DX: M16.11 Unilateral primary osteoarthritis, right hip (principal); S73.191A Other sprain of right hip, initial encounter; S76.111A Strain of right quadriceps muscle, fascia and tendon, initial encounter; M76.01 Gluteal tendinitis, right hip; S76.311A Strain of muscle, fascia and tendon of the posterior muscle group at thigh level, right thigh, initial encounter; X58.XXXA Exposure to other specified factors, initial encounter
CPT/HCPCS: 73721

== ENCOUNTER 2024-11-13 08:57 | Outpatient (CLI) | payer MEDICARE, SELFPAY ==
--- NOTE | 2024-11-13 09:15 | USCV_ITS ---
Ian Monroe Age: 74 Gender: M : 1950 Exam Date: 11/13/2024 09:21 Ordering Phys: Carol Lo NP Technologist: CT Exam Location: [facility] [place] Indication: cad,chf BP: 115 / 60 HR: Rhythm: Sinus Technical Quality: Adequate MEASUREMENTS (Male / Female) Normal Values 2D ECHO LVOT Diameter 2.1 cm LV Ejection Fraction MOD 4C 68.6 % LV Ejection Fraction MOD 2C 59.6 % LV Ejection Fraction 2C AL 59.6 % LA Diameter 3.9 cm RA Systolic Volume 4C AL 61.2 ml RA Systolic Volume 4C MOD 55.7 ml LA Sys Volume AL 58.7 cm cubed LA Sys Volume Index AL 30.6 cm cubed/m squared Aorta at Sinotubular Diameter 2.5 cm IVC Diameter 1.4 cm M-MODE LA Ao Ratio MM 1.5 AV Cusp Separation MM 2.2 cm FINDINGS Left Ventricle Normal left ventricular cavity size. Mildly decreased left ventricular systolic function. Left ventricular ejection fraction is estimated at 50 %. Grade I/IV diastolic dysfunction (abnormal relaxation filling pattern), normal to mildly elevated filling pressures. Right Ventricle The right ventricle is normal in size and function. Right Atrium The right atrium is normal in size. Left Atrium The left atrium is normal in size. Mitral Valve Moderately thickened mitral valve. Moderate mitral annular calcification. No mitral valve stenosis. Trace mitral valve regurgitation. Aortic Valve Mild aortic valve calcification. No aortic valve stenosis. Trace aortic valve regurgitation. Tricuspid Valve Structurally normal tricuspid valve without significant stenosis or regurgitation. Pulmonary artery systolic pressure is normal. Pulmonic Valve Structurally normal pulmonic valve without significant stenosis. There is no pulmonic regurgitation. Pericardium Normal pericardium without effusion. Aorta Normal ascending aorta dimension. IVC The inferior vena cava appears normal. CONCLUSIONS Normal left ventricular cavity size. Mildly decreased left ventricular systolic function. Left ventricular ejection fraction is estimated at 50 %. Grade I/IV diastolic dysfunction (abnormal relaxation filling pattern), normal to mildly elevated filling pressures. Moderately thickened mitral valve. Moderate mitral annular calcification. No mitral valve stenosis. Trace mitral valve regurgitation. There is no pericardial effusion. Right atrial pressure is around 5 mm of mercury. Braxton Cates MD (Electronically Signed) Final Date: 14 November 2024 01:09 S
== END 2024-11-13 08:58 | disposition home or self-care (01) ==
PROVIDERS: PCP Nurse Practitioner Family; Visit Provider Nurse Practitioner Family
DX: I50.20 Unspecified systolic (congestive) heart failure (principal); R93.1 Abnormal findings on diagnostic imaging of heart and coronary circulation; I34.81 Nonrheumatic mitral (valve) annulus calcification; I35.8 Other nonrheumatic aortic valve disorders
CPT/HCPCS: 93308

== ENCOUNTER → 2024-12-20 15:17 | Outpatient (BNVA) | payer MEDICARE, SELFPAY | PROVIDERS: PCP Nurse Practitioner Family; Visit Provider Internal Medicine | DX: I25.10 Atherosclerotic heart disease of native coronary artery without angina pectoris (principal); Z95.5 Presence of coronary angioplasty implant and graft; I11.0 Hypertensive heart disease with heart failure; I50.41 Acute combined systolic (congestive) and diastolic (congestive) heart failure; Z98.890 Other specified postprocedural states | CPT/HCPCS: 99214 ==

== ENCOUNTER → 2025-01-08 11:21 | Outpatient (BNVA) | payer MEDICARE, SELFPAY | PROVIDERS: PCP Nurse Practitioner Family; Visit Provider Nurse Practitioner Family | DX: Z13.9 Encounter for screening, unspecified (principal) | CPT/HCPCS: 86735; 86762; 86765 ==

== ENCOUNTER 2025-05-05 11:08 | Emergency (ER) | payer MEDICARE, SELFPAY ==
--- NOTE | 2025-05-05 11:12 | ECG_ITS ---
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 Measurements Intervals [place] Rate: 67 P: 97 [place]: 163 QRS: -72 QRSD: 112 T: 31 QT: 403 QTc: 427 Interpretive Statements SINUS RHYTHM LOW QRS VOLTAGE IN PRECORDIAL LEADS [QRS DEFLECTION < 1.0 mV IN CHEST LEADS] ANTERIOR MYOCARDIAL INFARCTION , OF INDETERMINATE AGE [40+ ms Q WAVE AND/OR ST/T ABNORMALITY IN V3/V4] INFERIOR MYOCARDIAL INFARCTION , PROBABLY OLD [40+ ms Q WAVE AND/OR ST/T ABNORMALITY IN II/aVF] Compared to ECG 06/26/2022 14:46:46 Low QRS voltage now present Myocardial infarct finding now present Electronically Signed On 05-05-2025 14:04:35 CDT by Haresh Lal M.D. [id number]
--- OUTSIDE RECORDS SUMMARY | 2025-05-05 11:13 | XMS_ITS | Clinical Summary ---
Author Organization [facility] Address [address] [place] [address] Phone Care Team Providers Care Redrying Machine Operator Name Role Phone Negro Russell MD Primary Care Provider [phone] Allergies Active Allergy Reactions Criticality Noted Date Comments Inositol Niacinate Unknown 07/12/2013 Niacin Itching Low 09/17/2014 Nxvprmv-Lau-Mqa Reductase Inhibitors Headache Low 09/17/2014 Medications azelastine (ASTELIN) 137 mcg/actuation nasal spray Administer 2 Sprays in each nostril 2 times daily. Active ezetimibe (ZETIA) 10 mg tablet Take 1 Tablet by mouth. 6 Active aspirin (ECOTRIN EC) 81 mg Tablet, Delayed Release (E.C.) Take 1 Tablet by mouth. 6 Active cholecalciferol, Vitamin D3, 2,000 unit Tablet Take 2,000 Units by mouth daily. Active lisinopril (PRINIVIL) 10 mg tablet Take 0.5 Tablets (5 mg) by mouth daily. 90 Tablet 1 9 Active Additional Information Patient taking differently: 10 mgOral DAILY, Reported on 10/19/2019 nitroglycerin (NITROSTAT) 0.4 mg Tablet, Sublingual DISSOLVE ONE TABLET UNDER THE TONGUE Q 5 MINUTES PRN FOR CHEST PAIN 9 Active isosorbide mononitrate (IMDUR) 30 mg Extended Release 24 hour tablet TAKE 1 TABLET(30 MG) BY MOUTH DAILY BUSINESS RELATIONSHIP MANAGER 90 Tablet 0 Active metoprolol succinate (TOPROL XL) 50 mg Extended Release 24 hour tablet TAKE 1 TABLET(50 MG) BY MOUTH DAILY 90 Tablet 2 1 Active dutasteride (AVODART) 0.5 mg Capsule TAKE 1 CAPSULE(0.5 MG) BY MOUTH DAILY 90 Capsule 3 4 Active tamsulosin (FLOMAX) 0.4 mg capsule TAKE 2 CAPSULES(0.8 MG) BY MOUTH DAILY 180 Capsule 3 4 Active Active Problems Patient Care Coordination No te Formatting of this note migh t be different from the original. Negro Dent MD Primary Cinder Pit Worker [facility] [address] [address] [phone] Problem Noted Date Diagnosed Date CAD (coronary artery disease) 01/11/2019 Assessment & Plan (01/11/2019 8:26 AM CDT): LAD PCI in 2004. Stress echo was okay in 2015. Continue medical therapy including aspirin. He is statin intolerant S/P mitral valve repair 01/11/2019 Assessment & Plan (01/11/2019 8:27 AM CDT): Mitral valve repair in 2010. Trivial regurgitation by echo Doppler study in 2015. Repeat echo Doppler study. SBE prophylaxis. HTN (hypertension) 01/11/2019 Assessment & Plan (01/11/2019 2:22 PM CDT): Will reduce lisinopril to 5 mg daily. Monitor blood pressure and symptoms of orthostatic hypotension. Hyperlipidemia 01/11/2019 Assessment & Plan (01/11/2019 8:28 AM CDT): Statin intolerant. Continue ezetimibe and diet. Encounters Date Type Department Care Team Description 05/02/2025 External Device Data ST[facility] ABSTRACTION Provider, Abstract 04/03/2025 External Device Data [facility]L ABSTRACTION Provider, Abstract 03/13/2025 External Device Data [facility] ABSTRACTION Provider, Abstract 03/07/2025 External Device Data [facility] ABSTRACTION Provider, Abstract 03/06/2025 External Device Data [facility] ABSTRACTION Provider, Abstract 02/20/2025 External Device Data [facility] ABSTRACTION Provider, Abstract from Last 3 Months Family History Medical History Relation Name Comments No Known Problems Other Relation Name Status Comments Other Social History Tobacco Use Types Packs/Day Years Used Date Smoking Tobacco: Never Smokeless Tobacco: Never Tobacco Cessation:Counseling Given: Not Answered Alcohol Use Standard Drinks/Week Comments Yes 1.7 (1 standard drink = 0.6 oz p ure alcohol) daily Sex and Gender Information Value Date Recorded Sex Assigned at Male 10/19/2024 9:29 AM SEAM FELLER Legal Sex Male 4:20 AM SEAM FELLER Gender Identity Male 10/19/2024 9:29 AM SEAM FELLER Sexual Orientation Straight 10/19/2024 9: 29 AM SEAM FELLER Occupation Industry Job Start Date Job End Date Not on file Not on file Not on file Not on file Last Filed Vital Signs Vital Sign Reading Time Taken Comments Blood Pressure 145/83 12/12/2024 11:52 AM SEAM FELLER Pulse 76 10/19/2019 8:22 AM SEAM FELLER Temperature 36.9 C (98.5 F) 09/19/2014 2:18 PM SEAM FELLER Respiratory Rate 16 09/19/2014 2:18 PM SEAM FELLER Oxygen Saturation 99% 09/19/2014 2:18 PM SEAM FELLER Inhaled Oxygen Concentration - - Weight 77.1 kg (170 lb) 12/12/2024 11:12 AM SEAM FELLER Height 167.6 cm (5' 6 ) 12/12/2024 11:12 AM SEAM FELLER Body Mass Index 27.44 12/12/2024 11:12 AM SEAM FELLER Plan of Treatment Upcoming Encounters Date Type Department Care Team (Late st Contact Info) Description 07/05/2025 2:30 PM CDT Office Visit [facility] Urology [address] [place] [address] Junaid Pinon NP [address] [facility] [address] [place] [phone] Health Maintenance Due Date Last Done Comments DTAP/TDAP/TD VACCINES (1 - Tdap) 1970 FIT-DNA Q 3 years 01/22/1996 FIT/FOBT Q 1 year 01/22/1996 Flex Sig/CT Colonography Q 5 years 01/22/1996 PNEUMOCOCCAL VACCINE 50+ YEA RS (1 of 1 - PCV) 2001 ZOSTER VACCINE (1 of 2) 2001 RSV VACCINE (60+ or ) (1 - Risk 60-74 years 1-dose series) 2011 COVID-19 Vaccine (2023-2 5 season) 2025 08/11/2024, 09/22/2023, 04/07/2023, Additional history exists INFLUENZA VACCINE (#1) 2025 2, 07/14/2021, 01/12/2019 COLORECTAL SCREENING 08/02/2028 08/02/2018, 08/02/20 18 Colorectal Cancer Screening 08/02/2028 Insurance Advance Directives For more information, please contact: [phone] * Full Code (Latest Code Status on File) Date Activated Date Inactivated Comments 09/19/2014 10:47 AM 09/19/2014 4:50 PM Care Teams Redrying Machine Operator Relationship Specialty Start Date End Date Negro Russell MD PCP - General Internal Medicine 03/21/15
--- OUTSIDE RECORDS SUMMARY | 2025-05-05 11:13 | XMS_ITS | Encounter Summary ---
Author Organization [facility] Address [address] [place] [address] Care Team Providers Care String Top Sealer Name Role Phone Negro Russell MD Primary Care Provider Encounter Details Date Type Department Care Team (Latest Contact Info) Description 05/16/2002 Outpatient Historical [facility] Angel Wan MD [address] [facility] [address] [place] [address] SYNOVITIS NEC (Primary Dx) Social History Tobacco Use Types Packs/Day Years Used Date Smoking Tobacco: Never Assessed Sex and Gender Information Value Date Recorded Sex Assigned at Male 10/19/2024 9:29 AM FLEET MECHANIC Legal Sex Male 4:20 AM FLEET MECHANIC Gender Identity Male 10/19/2024 9:29 AM FLEET MECHANIC Sexual Orientation Straight 10/19/2024 9: 29 AM FLEET MECHANIC documented as of this encounter Plan of Treatment Upcoming Encounters Date Type Department Care Team (Late st Contact Info) Description 07/05/2025 2:30 PM CDT Office Visit [facility] Urology [address] [place] [address] Junaid Pinon [address] [place] [address] documented as of this encounter Visit Diagnoses Diagnosis Other synovitis and tenosynovitis- Primary documented in this encounter Care Teams String Top Sealer Relationship Specialty Start Date End Date Negro Russell MD PCP - General Internal Medicine 03/21/15 documented as of this encounter
--- OUTSIDE RECORDS SUMMARY | 2025-05-05 11:13 | XMS_ITS | Encounter Summary ---
Author Organization [facility] Address [address] [place] [address] Care Team Providers Care Revenue Cycle Consultant Name Role Phone Negro Russell MD Primary Care Provider [phone] Encounter Details Date Type Department Care Team (Late st Contact Info) Description 05/02/2025 External Device Data [facility] ABSTRACTION Provider, Abstract NO ADDRESS ON FILE Social History Tobacco Use Types Packs/Day Years Used Date Smoking Tobacco: Never Smokeless Tobacco: Never Alcohol Use Standard Drinks/Week Comments Yes 1.7 (1 standard drink = 0.6 oz p ure alcohol) daily Sex and Gender Information Value Date Recorded Sex Assigned at Male 10/19/2024 9:29 AM TRAVELING PASSENGER AGENT Legal Sex Male 4:20 AM TRAVELING PASSENGER AGENT Gender Identity Male 10/19/2024 9:29 AM TRAVELING PASSENGER AGENT Sexual Orientation Straight 10/19/2024 9: 29 AM TRAVELING PASSENGER AGENT Occupation Industry Job Start Date Job End Date Not on file Not on file Not on file Not on file documented as of this encounter Plan of Treatment Upcoming Encounters Date Type Department Care Team (Late st Contact Info) Description 07/05/2025 2:30 PM CDT Office Visit [facility] Urology [address] [place] [address] Junaid Pinon NP [address] [place] [address] [address] [place] [address] documented as of this encounter Visit Diagnoses Not on filedocumented in this encounter Care Teams Revenue Cycle Consultant Relationship Specialty Start Date End Date Negro Russell MD PCP - General Internal Medicine 03/21/15 documented as of this encounter
--- OUTSIDE RECORDS SUMMARY | 2025-05-05 11:13 | XMS_ITS | Encounter Summary ---
Author Organization [facility] Address [address] [place] [address] Care Team Providers Care R Developer Name Role Phone Negro Russell MD Primary Care Provider Encounter Details Date Type Department Care Team (Late st Contact Info) Description 07/30/2004 Outpatient Historical [facility] Social History Tobacco Use Types Packs/Day Years Used Date Smoking Tobacco: Never Assessed Sex and Gender Information Value Date Recorded Sex Assigned at Male 10/19/2024 9:29 AM CEMENTING MACHINE OPERATOR Legal Sex Male 4:20 AM CEMENTING MACHINE OPERATOR Gender Identity Male 10/19/2024 9:29 AM CEMENTING MACHINE OPERATOR Sexual Orientation Straight 10/19/2024 9: 29 AM CEMENTING MACHINE OPERATOR documented as of this encounter Plan of Treatment Upcoming Encounters Date Type Department Care Team (Late st Contact Info) Description 07/05/2025 2:30 PM CDT Office Visit [facility] Urology [address] [place] [phone] Junaid Pinon NP [address] [place] [address] [address] [place] [phone] documented as of this encounter Visit Diagnoses Not on filedocumented in this encounter Care Teams R Developer Relationship Specialty Start Date End Date Negro Russell MD PCP - General Internal Medicine 03/21/15 documented as of this encounter
--- OUTSIDE RECORDS SUMMARY | 2025-05-05 11:13 | XMS_ITS | Encounter Summary ---
Author Organization [facility] Address [address] [place] [address] Care Team Providers Care Automatic Coin Machine Mechanic Name Role Phone Negro Russell MD Primary Care Provider [phone] Encounter Details Date Type Department Care Team (Latest Contact Info) Description 06/17/2002 Outpatient Historical [facility] Angel Wan MD [address] [facility] [address] [place] [address] SYNOVITIS NEC (Primary Dx) Social History Tobacco Use Types Packs/Day Years Used Date Smoking Tobacco: Never Assessed Sex and Gender Information Value Date Recorded Sex Assigned at Male 10/19/2024 9:29 AM BI CONSULTANT Legal Sex Male 4:20 AM BI CONSULTANT Gender Identity Male 10/19/2024 9:29 AM BI CONSULTANT Sexual Orientation Straight 10/19/2024 9: 29 AM BI CONSULTANT documented as of this encounter Plan of Treatment Upcoming Encounters Date Type Department Care Team (Late st Contact Info) Description 07/05/2025 2:30 PM CDT Office Visit [facility] Urology [address] [place] [address] Junaid Pinon [address] [place] [address] documented as of this encounter Visit Diagnoses Diagnosis Other synovitis and tenosynovitis- Primary documented in this encounter Care Teams Automatic Coin Machine Mechanic Relationship Specialty Start Date End Date Negro Russell MD PCP - General Internal Medicine 03/21/15 documented as of this encounter
--- OUTSIDE RECORDS SUMMARY | 2025-05-05 11:13 | XMS_ITS | Encounter Summary ---
Author Organization [facility] Address [address] [place] [address] Care Team Providers Care Monument Setter Name Role Phone Negro Russell MD Primary Care Provider Encounter Details Date Type Department Care Team (Late Contact Info) Description 07/19/2002 Outpatient Historical [facility] Angel Wan MD [address] [facility] [address] [place] [address] Social History Tobacco Use Types Packs/Day Years Used Date Smoking Tobacco: Never Assessed Sex and Gender Information Value Date Recorded Sex Assigned at Male 10/19/2024 9:29 AM BELT KNIFE FEEDER Legal Sex Male 4:20 AM BELT KNIFE FEEDER Gender Identity Male 10/19/2024 9:29 AM BELT KNIFE FEEDER Sexual Orientation Straight 10/19/2024 9: 29 AM BELT KNIFE FEEDER documented as of this encounter Plan of Treatment Upcoming Encounters Date Type Department Care Team (Late Contact Info) Description 07/05/2025 2:30 PM CDT Office Visit [facility] Urology [address] [place] [address] Junaid Pinon NP [facility] [address] [place] [address] documented as of this encounter Visit Diagnoses Not on filedocumented in this encounter Care Teams Monument Setter Relationship Specialty Start Date End Date Negro Russell MD PCP - General Internal Medicine 03/21/15 documented as of this encounter
[2025-05-05 11:14] VITALS: BP 118/73; PULSE 72; RESP 18; TEMP 36.4; O2SAT 98; BMI 26.6
--- NOTE | 2025-05-05 11:19 | XRR_ITS ---
PROCEDURE INFORMATION: Exam: XR Chest Exam date and time: 05/05/2025 11:30 AM Age: 75 years old Clinical indication: Pain; Chest pressure; Additional info: Cp TECHNIQUE: Imaging protocol: Radiologic exam of the chest. Views: 1 view. COMPARISON: CR XR chest 1V portable [id number] 06/26/2022 2:57 PM FINDINGS: Lungs: Unremarkable. No consolidation. Pleural spaces: Unremarkable. No pleural effusion. No pneumothorax. Heart/Mediastinum: Unremarkable. No cardiomegaly. Bones/joints: Status post median sternotomy and aortic valve surgery. XR/XR chest 1V portable [id number] IMPRESSION: No acute findings.
--- NOTE | 2025-05-05 11:19 | W.ED.CHESTPA ---
HPI - Chest Pain General: Chief Complaint: Chest Pain Stated Complaint: Chest tightness Time Seen by Provider: 05/05/25 11:19 History of Present Illness: 75-year-old male with known coronary artery disease send with concerns of chest pain that resolved with nitroglycerin. The patient denies any current symptoms he denies any shortness of breath, diaphoresis or nausea vomiting. No fever or infectious symptoms. Patient has had symptoms like this to a lesser degree previously. The patient has been taking medications as directed recent medication change per cardiology. No abdominal pain. Chest pain was described as a pressure-like pain that relieved with nitroglycerin. No other symptoms reported. Associated symptoms: Deny fever(s) or palpitations Related Data Home Medications ?Medication ?Instructions ?Recorded ?Confirmed cholecalciferol (vitamin D3) 25 4,000 unit PO DAILY 10/23/20 01/08/25 mcg (1,000 unit) capsule (Vitamin D3) aspirin 81 mg tablet,delayed 81 mg PO DAILY 06/12/21 01/08/25 release (Adult Aspirin Regimen) Previous Rx's ?Medication ?Instructions ?Recorded tamsulosin 0.4 mg capsule See Rx Instructions .Route 06/11/22 .COMPLEX #180 caps dutasteride 0.5 mg capsule See Rx Instructions .Route 07/13/22 .COMPLEX #90 caps azelastine 137 mcg (0.1 %) nasal 2 spray intranasal BID #30 mL 09/15/22 spray triamcinolone acetonide 0.1 % 1 applic topical QID #15 grams 05/11/24 topical cream isosorbide mononitrate 30 mg 30 mg PO DAILY #90 tabs 08/08/24 tablet,extended release 24 hr clopidogrel 75 mg tablet 75 mg PO DAILY #90 tabs 08/25/24 evolocumab 140 mg/mL subcutaneous See Rx Instructions .Route 08/31/24 pen injector (Repatha Sanchoick) .COMPLEX #6 mL ezetimibe 10 mg tablet (Zetia) 10 mg PO DAILY #90 tabs 10/30/24 furosemide 40 mg tablet See Rx Instructions .Route 12/15/24 .COMPLEX #90 tabs potassium chloride 20 mEq 20 meq PO .prn take 1 if you take 12/25/24 tablet,extended release a lasix #30 tabs metoprolol succinate 25 mg 12.5 mg (1/2 x 25 mg) PO DAILY #90 03/26/25 tablet,extended release 24 hr tabs nitroglycerin 0.4 mg sublingual 0.4 mg sublingual Q5M PRN chest 04/16/25 tablet pain #25 tabs sacubitril 49 mg-valsartan 51 mg 0.5 tab PO BID #180 tabs 04/23/25 tablet Allergies Allergy/AdvReac Type Severity Reaction Status Date / Time niacin Allergy Severe ADR/ALGY-Fl Verified 05/05/25 11:17 ushing oxycodone Allergy Severe ALGY-Difficulty Verified 05/05/25 11:17 Breathing hydrocodone (From Hycomine Allergy Intermediate ALGY-Difficulty Verified 05/05/25 11:17 (hydrocodone-PPA)) Breathing phenylpropanolamine (From Allergy Intermediate ALGY-Difficulty Verified 05/05/25 11:17 Hycomine (hydrocodone-PPA)) Breathing Qlwwksh-TML-XzA Reductase Allergy Intermediate ADR-Cramping Verified 05/05/25 11:17 Inhibitor (Tgbupme-Ioc-Lpj of the Reductase Inhibitor) Muscles Review of Systems Const: Reports: chills; Denies: fever(s) or fatigue Card: Denies: palpitations, irregular heart rhythm or swelling of feet/ankles PFSH ED PFSH: Medical History (Updated 05/05/25 @ 13:59 by Srinivas Fischer DO) Systolic and diastolic CHF, acute Colonoscopy planned Allergic reaction caused by a drug Family history of prostate cancer Father with history 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 No contraindications. Denies nitroglycerin usage. Elevated PSA Transient elevation of 5 with >50% reduction in PSA after initiation of dutasteride for BPH. Persistently in the range of 1.0 since. BPH loc w urin obs/LUTS Long-term durable benefit from DUTASTERIDE. Arthritis Carpal tunnel syndrome, bilateral Knee torn cartilage, right Colon polyp Abnormal colonoscopy Left lateral epicondylitis Erectile dysfunction Non-smoker Shoulder pain with history of repair of rotator cuff Hypertension BPH (benign prostatic hyperplasia) Statin intolerance Dyslipidemia Mitral valve regurgitation Surgical History S/P knee surgery History of hernia repair S/P left rotator cuff repair Stented coronary artery History of mitral valve repair History of coronary artery stent placement H/O circumcision History of unicondylar arthroplasty of right knee S/P mitral valve repair Family History Mother , at age 95 Hypertension CAD (coronary artery disease) Cancer Dementia Father , at age 74 Cancer Social History Smoking and tobacco/nicotine status: never used tobacco/nicotine Alcohol intake: current Alcohol intake frequency: 0-2 Drinks per Day Substance/Drug Use: never Marital status: Current occupational status: retired Physical Exam Const: COMMON NORMALS: no acute distress, patient oriented x3, alert and well nourished HENMT: COMMON NORMALS: normocephalic HEAD & SCALP: normocephalic Eye: COMMON NORMALS: Equal, round and reactive pupils present, EOMs intact bilaterally and conjunctivae normal CONJUNCTIVA: Yes conjunctivae normal PUPIL: Yes Equal, round and reactive pupils present Neck/C-Spine: COMMON NORMALS: full ROM, no lymphadenopathy, supple, no meningeal signs, no JVD and Thyroid normal THYROID: Thyroid normal Chest: COMMONS NORMALS: normal inspection of the chest and normal palpation of entire chest wall Resp: COMMON NORMALS: normal respiratory effort, No retractions, No use of accessory muscles, clear to auscultation bilaterally and percussion normal AUSCULTATION: clear to auscultation bilaterally PERCUSSION: percussion normal Cardio: COMMON NORMALS: no JVD GI: COMMON NORMALS: Normal to inspection, nondistended, normoactive bowel sounds present, Soft to palpation, non-tender, No hepatosplenomegaly present, no masses and no bruits PALPATION: Yes Soft to palpation and Yes No hepatosplenomegaly present : COMMON NORMALS: Yes no CVA tenderness BLADDER/KIDNEY EXAM: Yes no CVA tenderness Back/Pelvis: COMMON NORMALS: no CVA tenderness Extremity: COMMON NORMALS: normal to inspection, full ROM, capillary refill normal, no joint enlargement, no clubbing, cyanosis or edema, no calf tenderness and no pedal edema Neuro: COMMON NORMALS: patient oriented x3 SENSORIUM/ORIENTATION: Yes alert MENINGEAL SIGNS: Yes no meningeal signs Skin: COMMON NORMALS: no rashes or lesions noted, turgor normal and no jaundice GENERAL SKIN EXAM: no rashes or lesions noted and turgor normal Course Vital Signs: Vital signs: Vital Signs Temperature 97.5 F L 05/05/25 11:14 Pulse Rate 69 05/05/25 13:09 Respiratory Rate 18 05/05/25 13:09 Blood Pressure 102/66 05/05/25 13:09 Pulse Oximetry 99 05/05/25 13:09 MDM - Chest Pain Medical Decision Making 75-year-old male with known coronary artery disease and with chest pain that resolved after nitroglycerin. Chest pain free currently. Differential is broad but includes acute coronary syndrome, angina, other etiologies of chest pain recommend serial troponins, chest x-ray twelve-lead EKG and monitoring. Patient currently appears in no distress and is without symptoms. Patient's workup here is normal or nondiagnostic with through mutual decision making he wanted to go home and follow-up with cardiology versus admission after risk benefits alternatives and complications discussed. Lab Data 05/05/25 11:30 05/05/25 11:30 Radiology Impressions Chest X-Ray 05/05/25 11:19 IMPRESSION: No acute findings. Laboratory Results WBC 9.25 10^3/uL (3.29-11.43) 05/05/25 11:30 RBC 4.54 10^6/uL (3.85-5.65) 05/05/25 11:30 Hgb 13.80 g/dL (11.27-16.99) 05/05/25 11:30 Hct 42.1 % (37-53) 05/05/25 11:30 MCV 92.7 fl (82-101) 05/05/25 11:30 MCH 30.4 pg (27-33) 05/05/25 11:30 MCHC 32.8 g/dL (30-55) 05/05/25 11:30 RDW 12.4 % (12.1-15.1) 05/05/25 11:30 Plt Count 220 10^3/cmm (157-399) 05/05/25 11:30 MPV 10.2 fL (7.4-10.4) 05/05/25 11:30 Neut % (Auto) 74.2 % 05/05/25 11:30 Lymph % (Auto) 17.6 % 05/05/25 11:30 Luce % (Auto) 6.3 % 05/05/25 11:30 Eos % (Auto) 1.3 % 05/05/25 11:30 Baso % (Auto) 0.4 % 05/05/25 11:30 Neut # (Auto) 6.86 10^3/uL (1.8-7.7) 05/05/25 11:30 Lymph # (Auto) 1.6 10^3/uL (0.8-4.8) 05/05/25 11:30 Luce # (Auto) 0.6 10^3/uL (0.2-0.9) 05/05/25 11:30 Eos # (Auto) 0.1 10^3/uL (0.0-0.8) 05/05/25 11:30 Baso # (Auto) 0.0 10^3/uL (0.0-0.1) 05/05/25 11:30 Nucleated RBC % (auto) 0 % 05/05/25 11:30 Nucleated RBCs # 0.0 /100WBC 05/05/25 11:30 Sodium 138 mmol/L (136-145) 05/05/25 11:30 Potassium 4.2 mmol/L (3.5-5.1) 05/05/25 11:30 Chloride 101 mmol/L (98-107) 05/05/25 11:30 Carbon Dioxide 23 mmol/L (22-29) 05/05/25 11:30 Anion Gap 18.2 (5-19) 05/05/25 11:30 BUN 11 mg/dL (8-23) 05/05/25 11:30 Creatinine 0.9 mg/dL (0.7-1.2) 05/05/25 11:30 GFR Calculation Not Reportable 05/05/25 11:30 Glucose 88 mg/dL (65-115) 05/05/25 11:30 Calculated Osmolality 285 mOsm/kg (285-295) 05/05/25 11:30 Calcium 8.9 mg/dL (8.5-10.5) 05/05/25 11:30 Total Bilirubin 0.3 mg/dL (0.15-1.2) 05/05/25 11:30 AST 20 U/L (0-40) 05/05/25 11:30 ALT 13 U/L (0-41) 05/05/25 11:30 Alkaline Phosphatase 38 U/L (40-130) L 05/05/25 11:30 Troponin T Baseline 10 ng/L (0-15) 05/05/25 11:30 Troponin T 120 Minute 8.61 ng/L (0-15) 05/05/25 13:07 Delta Troponin T -1.39 ABS# (0-10) L 05/05/25 13:07 Total Protein 6.4 g/dL (6.6-8.7) L 05/05/25 11:30 Albumin 4.2 g/dL (3.5-5.2) 05/05/25 11:30 Globulin 2.2 g/dL (1.3-4.6) 05/05/25 11:30 All radiology interpretation(s) finalized by discharge ED provider radiology interpretation(s): Chest x-ray shows no acute cardiopulmonary process patient's twelve-lead EKG reveals sinus rhythm with low voltage and some other nonspecific findings but no obvious occlusion DE or acute DE characteristics. Serial troponins were negative he remained chest pain-free during the time he was here with stable vital signs. Discharge Plan Discharge Patient Disposition: Home Clinical Impression: Chest pain Qualifiers: Chest pain type: unspecified Qualified Code(s): R07.9 - Chest pain, unspecified CAD (coronary artery disease) Qualifiers: Coronary Disease-Associated Artery/Lesion type: [place] artery [place] vs. transplanted heart: [place] heart Associated angina: without angina Qualified Code(s): I25.10 - Atherosclerotic heart disease of [place] coronary artery without angina pectoris Condition: Stable Prescriptions: No Action aspirin [Adult Aspirin Regimen] 81 mg tablet,delayed release (DR/EC) 81 mg PO DAILY tamsulosin 0.4 mg capsule See Rx Instructions .ROUTE .COMPLEX Qty: 180 3RF Dose Instruction: TAKE 1 CAPSULE BY MOUTH TWICE DAILY Rx Instructions: TAKE 1 CAPSULE BY MOUTH TWICE DAILY azelastine 137 mcg (0.1 %) aerosol,spray 2 spray intranasal BID Qty: 30 1RF Rx Instructions: administer into each nostril triamcinolone acetonide 0.1 % cream 1 applic topical QID Qty: 15 0RF dutasteride 0.5 mg capsule See Rx Instructions .ROUTE .COMPLEX Qty: 90 3RF Dose Instruction: TAKE ONE CAPSULE BY MOUTH DAILY Rx Instructions: TAKE ONE CAPSULE BY MOUTH DAILY isosorbide mononitrate 30 mg tablet extended release 24 hr 30 mg PO DAILY Qty: 90 3RF clopidogrel 75 mg tablet 75 mg PO DAILY Qty: 90 3RF Repatha SureClick 140 mg/mL pen injector See Rx Instructions .ROUTE .COMPLEX Qty: 6 3RF Dose Instruction: ADMINISTER 1 ML UNDER THE SKIN EVERY 2 WEEKS. Rx Instructions: ADMINISTER 1 ML UNDER THE SKIN EVERY 2 WEEKS. Zetia 10 mg tablet 10 mg PO DAILY Qty: 90 3RF furosemide 40 mg tablet See Rx Instructions .ROUTE .COMPLEX Qty: 90 0RF Dose Instruction: TAKE 1 TABLET BY MOUTH NEEDED FOR WEIGHT GAIN OF 2 LBS IN 1 DAY. TAKE WITH POTASSIUM IF YOU GAIN 3 LBS IN 1 DAY OR INCREASED SWELLING IN LEGS. Rx Instructions: TAKE 1 TABLET BY MOUTH NEEDED FOR WEIGHT GAIN OF 2 LBS IN 1 DAY. TAKE WITH POTASSIUM IF YOU GAIN 3 LBS IN 1 DAY OR INCREASED SWELLING IN LEGS. potassium chloride 20 mEq tablet extended release 20 meq PO .prn Qty: 30 3RF metoprolol succinate 25 mg tablet extended release 24 hr 12.5 mg PO DAILY Qty: 90 0RF nitroglycerin 0.4 mg tablet, sublingual 0.4 mg SUBLINGUAL Q5M PRN (Reason: chest pain) Qty: 25 2RF Rx Instructions: until response; do not exceed 3 doses per episode sacubitril-valsartan 49-51 mg tablet 0.5 tab PO BID Qty: 180 1RF Vitamin D3 25 mcg (1,000 unit) capsule 4,000 unit PO DAILY Discharge Orders: Discharge ED (Routine); Ordered 05/05/25 Ordered By: Srinivas Fischer Referrals: Marci Russo FNP [Primary Care Provider, Family Practice] Discharge Diet: Cardiac Discharge Activity: Resume usual activity Patient Instructions: Opioid Safety, Pain Management, Patient Portal & Sylvia Instructions Activity Restrictions/Additional Instructions: 1. Rest, take Rx as directed. 2. Call cardiology on Wednesday for follow up. 3. Return to ED for new or worsening symptoms. Print Language: Irish Coding Level of Care Code ED Secretary [employer] for Taiwo Carter
[2025-05-05 11:39] LABS: Hematocrit 42.1 % (37-53); Hemoglobin 13.80 g/dL (11.27-16.99); Mean Corpuscular HGB Conc 32.8 g/dL (30-55); Mean Corpuscular Hemoglobin 30.4 pg (27-33); Mean Corpuscular Volume 92.7 fl (82-101); Nucleated Red Blood Cells % 0 %; Platelet Count 220 10^3/cmm (157-399); Red Blood Count 4.54 10^6/uL (3.85-5.65); White Blood Count 9.25 10^3/uL (3.29-11.43)
[2025-05-05 11:43] VITALS: BP 109/63; PULSE 67; RESP 18; O2SAT 96
[2025-05-05 11:57] LABS: Troponin(5th) Baseline 10 ng/L (0-15)
[2025-05-05 12:01] LABS: Alanine Aminotransferase 13 U/L (0-41); Albumin Level 4.2 g/dL (3.5-5.2); Alkaline Phosphatase 38 U/L (40-130); Anion Gap 18.2 (5-19); Aspartate Amino Transferase 20 U/L (0-40); Blood Urea Nitrogen 11 mg/dL (8-23); Calcium 8.9 mg/dL (8.5-10.5); Carbon Dioxide 23 mmol/L (22-29); Chloride 101 mmol/L (98-107); Creatinine Clr Calc Pharmacy 69.4805; Globulin 2.2 g/dL (1.3-4.6); Glucose 88 mg/dL (65-115); Osmolality Calculated 285 mOsm/kg (285-295); Potassium 4.2 mmol/L (3.5-5.1); Sodium 138 mmol/L (136-145); Total Protein 6.4 g/dL (6.6-8.7)
[2025-05-05 12:02] VITALS: BP 87/54; PULSE 68; RESP 16; O2SAT 95
[2025-05-05 13:09] VITALS: BP 102/66; PULSE 69; RESP 18; O2SAT 99
[2025-05-05 13:33] LABS: Troponin 5 2HR 8.61 ng/L (0-15)
[2025-05-05 13:34] LABS: Troponin 5 2HR Delta -1.39 ABS# (0-10)
[2025-05-05 14:21] VITALS: BP 108/74; PULSE 60; RESP 16; O2SAT 97
== END 2025-05-05 14:22 | disposition home or self-care (01) ==
PROVIDERS: Emergency Provider Family Medicine; PCP Nurse Practitioner Family
DX: I25.10 Atherosclerotic heart disease of native coronary artery without angina pectoris (principal); R07.89 Other chest pain; Z79.82 Long term (current) use of aspirin; Z88.5 Allergy status to narcotic agent; Z88.8 Allergy status to other drugs, medicaments and biological substances; I50.42 Chronic combined systolic (congestive) and diastolic (congestive) heart failure; E78.5 Hyperlipidemia, unspecified; I11.0 Hypertensive heart disease with heart failure; Z82.49 Family history of ischemic heart disease and other diseases of the circulatory system
CPT/HCPCS: 71045; 80053; 84484; 85025; 93005; 99285

== ENCOUNTER 2025-06-06 08:01 | Outpatient (CLI) | payer MEDICARE, SELFPAY ==
--- NOTE | 2025-06-06 | ECG_ITS ---
[facility] 2025[facility] Pat Name: Ian Monroe Department: Room: Gender: Male [place]: : 1950 Requested By: Fer Spain Order Number: [id number] Reading MD: SHELLY MO Interpretive Statements Lung unchanged pre/post procedure; Intraprocedure shortess of breath; Symptoms resoled by discharge NOTE: Please note that this is the electrocardiogram portion of the Lexiscan/Sestamibi stress test. The perfusion scan will be documented separately. DATA: Baseline heart rate was 60 beats per minute. Baseline blood pressure was 106/76 millimeters of mercury. Target heart rate was 146. Maximum heart rate achieved was 95. which was 65 % of the predicted target heart rate. Maximum blood pressure was 107/76 millimeters of mercury. The reason for ending the test was completion of the protocol. The patient did not experience any symptoms. ELECTROCARDIOGRAM: BASELINE: Sinus rhythm. Left axis. Left bundle branch block EXERCISE: After Lexiscan injection, no ST-T changes suggestive of ischemic noted. No arrhythmia noted. CONCLUSION: Please note due to baseline abnormality of the EKG specificity and sensitivity of the EKG portion of LexiScan MIBI stress test will be low 1. EKG not suggestive of ischemia 2. Lexiscan injection unremarkable. 3. Perfusion scan will be documented separately. Electronically Signed On 06-30-2025 14:31:29 CDT by SHELLY MO [email or web address]
--- NOTE | 2025-06-06 08:22 | NMCV_ITS ---
NM rakan perf SPECT r/s* [id number] Ian Monroe Age: 75 Gender: M : 1950 Exam Date: 06/06/2025 08:53 Ordering Phys: Fer Spain M.D ([email or web address]) Technologist: CHEYENNE Canales Exam Location: [facility] Indications: cp STRESS TEST [facility] IMAGE PROTOCOL Rest/Stress 1 Lexiscan Day Radiopharmaceutical Dose (mCi) Administration Site Administered by Rest: Tc-99m 10.5 IV CHEYENNE Canales Sestamibi Stress:Tc-99m 32.8 IV Cheri Davison, FIELD ADMINISTRATOR Sestamibi Rest: 06-Jun-2025 60 Discovery 630 Stress: 06-Jun-2025 30 Discovery 630 0.4mg Lexiscan. Images obtained in supine and prone position. SPECT RESULTS Technical Quality: Good Raw Data Analysis: Normal Image Corrections: No attenuation or motion correction applied Summed Stress Score: 6 Summed Rest Score: 5 Summed Difference Score: 1 PERFUSION FINDINGS Medium sized area of basal to mid inferior and inferolateral wall fixed perfusion defect surrounded by medium sized area of moderate reversibility suggestive of ischemia noted in the circumflex territory. FUNCTIONAL RESULTS (calculated via Gated SPECT) Stress Image LV EF (%): 47 Stress EDV (mL):121 TID: 1.18 Stress ESV (mL):64 FUNCTIONAL FINDINGS: Inferior lateral wall hypokinesis IMPRESSIONS Medium sized area of old myocardial infarction surrounded by medium sized area of moderate ischemia noted in the inferior inferolateral wall suggestive of possible lesion in circumflex territory. Braxton Cates MD (Electronically Signed) Final Date: 06 June 2025 12:37 S
[2025-06-06 08:23] VITALS: BMI 25.9
[2025-06-06 09:38] VITALS: BP 107/62; PULSE 74
== END 2025-06-06 08:02 | disposition home or self-care (01) ==
LOC: CDL 08:02
PROVIDERS: PCP Nurse Practitioner Family; Visit Provider Internal Medicine
DX: R07.9 Chest pain, unspecified (principal); I51.89 Other ill-defined heart diseases; R93.1 Abnormal findings on diagnostic imaging of heart and coronary circulation
CPT/HCPCS: 36415; 78452; 93017; 96374; A9500; J2785

== ENCOUNTER → 2025-06-27 10:33 | Outpatient (BNVA) | payer MEDICARE, SELFPAY | PROVIDERS: PCP Nurse Practitioner Family; Visit Provider Internal Medicine | DX: I25.10 Atherosclerotic heart disease of native coronary artery without angina pectoris (principal); I11.0 Hypertensive heart disease with heart failure; I50.41 Acute combined systolic (congestive) and diastolic (congestive) heart failure; R07.89 Other chest pain | CPT/HCPCS: 36415; 80048; 85025; 85610; 99214 ==

== ENCOUNTER 2025-07-04 07:21 | Outpatient (CLI) | payer MEDICARE, SELFPAY ==
[2025-07-04] VITALS (13 sets, daily range): BP systolic 99–143; BP diastolic 62–78; PULSE 62–71; RESP 12–18; TEMP 36.6; O2SAT 95–98; BMI 26.6
--- NOTE | 2025-07-04 07:30 | XACV_ITS ---
Exam Room: 2 Ht: 168 cm Wt: 75 kg BSA: 1.88 m2 Gender: Male : 1950 Any Known Allergies: Other Exam Priority: Routine Procedure(s): Procedure Description: Diagnostic procedure Procedure Description: Left Heart Catheterization Procedure Description: Left ventriculography Procedure Description: Coronary Angiography Diagnostic Cath Status: Elective Diagnostic Findings * INDICATION: Worsening angin/ abnormal stress test. * Circumflex has no significant disease. * Right Coronary Artery has mild luminal irregularities. Patent prior mid RCA stent. * Patent prior stent. Mid Left Anterior Descending: minimal 30% stenosis, BENJI: 3 flow. * Left Main has no disease. * Coronary angiography shows right dominance. Conclusions 1. Non-obstructive coronary artery disease. Patent prior stents. 2. Normal left ventricular systolic function. Ejection fraction of 55%. Recommendations * Aggressive risk factor modification. Will uptitrate anti-anginal medications. * Outpatient cardiology follow up. Interventional RX Recommendation: medical therapy and/or counseling Diagnostic RX Recommendation: medical therapy and/or counseling Anticoagulation: Heparin Ventriculography Ejection Fraction: 55.0 % Pressures Phase:Rest AO : 106 / 58 ( 78 ) @ 9:54:00 AM 108 / 59 ( 80 ) @ 9:54:00 AM LV : 112 / -2 / 20 @ 9:53:00 AM 112 / -4 / 19 @ 9:54:00 AM 111 / -4 / 19 @ 9:54:00 AM Valves Phase:DefaultPhase AV : 5.0 @ 9:11:49 AM AV Mean Gradient: 10.0 @ 9:11:49 AM Clinical Evaluation EBL: 5mL-10mL Procedural Details Procedure Consent Obtained. Pre-Procedure Time Out. Identified patient by full name and date of as verbalized by the patient/guarantor. Does the consent match the physician's order: Yes. Accurate & Complete Informed Consent: Yes. Inpatient/Outpatient History & Physical on Chart: Yes. If H&P is completed, is and addenduem needed: No. Visualize and Verify Site with Patient/Guarantor: N/A. Relevant Radiology Images available: Yes. The risks, benefits, and alternatives of sedation and/or procedure were discussed by physician. The patient agrees to continue. Procedure started. 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 Chest Pain Symptom Assessment: Typical Angina Symptoms. Cardiovascular Instability: No. Correct patient, site and procedure confirmed by cath team. PERRLA. 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 Lungs clear x 5 lobes. IV Site on Arrival: 20 gauge in the right anticubital. IV Fluids: 0.9% NaCl at KVO. 0 mL infused prior to agriculture laboratory technician. Pre Procedural Pulses: bilateral dorsalis pedis was 2+. Pre Procedural Pulses: bilateral posterior tibial was 2+. Pre Procedural Pulses: bilateral radial was 3+. Oxygen started at 2liters/min via nasal canula. right groin was prepped with chloroprep then draped in the usual sterile fashion. right radial was prepped with chloroprep then draped in the usual sterile fashion. Physician notified. Patient's family in CPRU room #4. Dr. Spain will update at the completion of the procedure. Equipment: 6F - Radial. Cardiac Cath Pack. ACIST Manifold Kit Model BT 2000. Heparinized Saline (2 units/mL), 1000 mL bag. Baseline sample Acquired. HR: 67 BPM. Physician arrived. Immediate Pre-Procedure Time Out. Physician scrubbed in. Correct Patient: Yes; Correct Procedure: Yes; Correct Site: Yes; Correct Patient Position: Yes; Correct Supplies: Yes; Dried Flammable Prep: Yes; Blood Products Available: N/A;. Lidocaine 1% infiltrated to the right radial. Arterial access obtained. A 5 swazi TIG catheter in over the exchange J wire. Multiple views taken of left coronary artery. Catheter redirected to the RCA. Multiple views taken of right coronary artery. Catheter removed over the exchange J wire. A 5 swazi Angled Pig catheter in over the exchange J wire. EDP Sample taken: LV 112/-3,20; HR: 71 BPM; SpO2: 94%. LV gram performed in NICHOLAS @ 10 mL/second for a total of 30 mL. EDP Sample taken: LV 112/-5,19; HR: 74 BPM; SpO2: 92%. Pullback taken: LV 111/-5,19; AO 106/58(78); Mean: 10mmHg, Peak to Peak: 5mmHg, SEP: 19sec/min; HR: 69 BPM; SpO2: 93%. Catheter removed over the exchange J wire. Physician scrubbed out. Vital chart was stopped. A TR Band was successful obtaining hemostatsis at the Right Radial artery insertion site. Post Procedure: Pulses reassessed and unchanged. PERRLA. 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 No VTE prophylaxis required. Medication's Wasted: Lidocaine 1% = 18 mL. Medication's Wasted: Nitro = 49.8 mg. Medication's Wasted: Heparin = 1000 units. Medication's Wasted: Other = Versed 1 mg. Medication's Wasted: Other = Fentanyl 50 mcg. Total IV fluids: 25 mL. Post-op diagnosis: Patent Prior stents, non obstructive CAD. Complications: none. Estimated blood loss: 5mL-10mL. Responsiveness - Normal response to verbal stimuli; alert and oriented, PERRLA. Airway - Unaffected, no intervention required; spontaneous ventilation. Circulation: W/N/L, pulses unchanged. Nausea/Vomiting: No. Procedure completed. Patient transferred by wheelchair to CPRU. Access Site Site: Right Radial artery Sheath Size: 6 Fr Hemostasis Method: TR Band Hemostasis Success: Successful Procedure Medications Start: 8:39 AM Stop: 8:39 AM Medication: Versed Amount: 1 mg Route: I.V. Start: 8:39 AM Stop: 8:39 AM Medication: Fentanyl Amount: 50 mcg Route: I.V. Start: 8:45 AM Stop: 8:45 AM Medication: Nitrogylcerin Amount: 200 mcg Route: I.A. Start: 8:47 AM Stop: 8:47 AM Medication: Heparin Amount: 5000 units Route: I.V. I, the attending physician, have reviewed and verified all procedure medications. Yes, all medications given per verbal order History/Risk Factors Hypertension: Yes Dyslipidemia: Yes Peripheral Arterial Disease (PAD): No Myocardial Infarction (SD): No Obesity: No Renal Disease: No Tobacco Use: Never Prior Interventions PCI: Yes CABG: No Valve Surgery: No Date of PCI: 09/11/2024 Report Signatures Finalized by Fer Spain MD on 07/16/2025 10:22 AM
--- NOTE | 2025-07-04 08:25 | W.PM.OPSUD ---
Surgery/Procedure H&P Update DATE OF PROCEDURE: July 04, 2025 DATE H&P PERFORMED: 06/27/25 H&P UPDATE INFORMATION: I have reviewed H&P completed within last 30 days, I have examined patient prior to procedure and No changes to prior documentation PREOP DIAGNOSIS: Worsening angina/abnormal stress test PRIMARY INDICATION FOR PROCEDURE: Worsening angina/abnormal stress test PLANNED PROCEDURE: Operation Date: 07/04/25 08:30 Proposed Procedures p Cardiac Catheterization - [facility] w/wo LV & Coros(Left) - Fer Spain M.D Possible percutaneous coronary intervention PATIENT REASSESSED PRIOR TO SEDATION, WITH NO CHANGE NOTED: Yes PHYSICAL EXAM: alert, oriented x 3, clear to auscultation bilaterally and regular rate & rhythm AIRWAY EVAL/ANESTHESIA PLAN: normal airway, ASA III, Monitored Anesthesia, Risks, benefits & alternatives of sedation and/or procedure discussed and Patient agrees to continue as planned
--- NOTE | 2025-07-04 09:00 | PC.NURSE ---
Received the patient back from the grinding and polishing laborer via wheelchair s/p Diagnostic [facility]. Patient ambulated to the cot without difficulty. A & 0 x 3. drill press set up operator placed and vital signs obtained. TR band intact to the right wrist. No bleeding or hematoma noted. Palpable radial pulse. No other assessment changes noted from pre cath assessment. Spouse at bedside. No concerns voiced at this time.
--- NOTE | 2025-07-04 10:00 | PC.NURSE ---
Letting the air out of the TR band per protocol. No other assessment changes at this time. Spouse remains at bedside.
--- NOTE | 2025-07-04 11:14 | PC.NURSE ---
TR band off per protocol. Right wrist area cleansed with warm water and patted dry. A large band aid was applied to the site and loosely secured with coban. No bleeding or hematoma noted. Palpable radial pulse. Patient tolerated well.
== END 2025-07-04 07:22 | disposition home or self-care (01) ==
PROVIDERS: PCP Nurse Practitioner Family; Visit Provider Internal Medicine
DX: I25.119 Atherosclerotic heart disease of native coronary artery with unspecified angina pectoris (principal); Z95.5 Presence of coronary angioplasty implant and graft; I10 Essential (primary) hypertension; E78.5 Hyperlipidemia, unspecified; Z79.82 Long term (current) use of aspirin; I34.0 Nonrheumatic mitral (valve) insufficiency
CPT/HCPCS: 36415; 93458; 99152; 99153; C1769; C1887; C1894; J1644; J2250; J3010; J3490; J7030; J9999; Q0163; Q9967

== ENCOUNTER → 2025-08-01 13:12 | Outpatient (BNVA) | payer MEDICARE, SELFPAY | PROVIDERS: PCP Nurse Practitioner Family; Visit Provider Internal Medicine | DX: I25.10 Atherosclerotic heart disease of native coronary artery without angina pectoris (principal); I10 Essential (primary) hypertension | CPT/HCPCS: 99214 ==